=== PATIENT | male | born 1945 | race Caucasian/White ===

== ENCOUNTER → 2017-01-03 | Outpatient (CLI) | payer OTHER, MEDICARE ==
[~2017-01-03] MED LIST: ALBU1AER9 INH; AMPI500C9 PO; ASPI325T45 PO; ATOR-24 PO; CITA20TA4 PO; CLOP1TAB15 PO; CLR10 PO; CYCL10TA6 PO; FLUT45AE IN; GABA800T PO; HYDR-5688 PO; INSDGI SC; NTRGSL/4 UT; PANT40TA PO; TAMS0.4C38 PO
== END | disposition home or self-care (01) ==
LOC: C.LABSPEC 16:58
PROVIDERS: ATTEND Urology
DX: Z00.00 Encounter for general adult medical examination without abnormal findings (principal); E11.9 Type 2 diabetes mellitus without complications; N47.2 Paraphimosis; I51.9 Heart disease, unspecified; N20.1 Calculus of ureter; I63.9 Cerebral infarction, unspecified; N39.0 Urinary tract infection, site not specified; N40.1 Benign prostatic hyperplasia with lower urinary tract symptoms; R35.0 Frequency of micturition

== ENCOUNTER 2019-12-23 07:54 | Inpatient (IN) ==
--- NOTE | 2019-12-19 10:37 | Anesthesiology Consultation ---
Date of Service December 19, 2019 Assessment & Plan (1) Encounter for pre-operative examination: Chart Review Chart Review: Acceptable Risk for Surgery (pending PRP DOS ) and Patient NOT seen in Pre Admission Testing - At PAT appt 08/13/19, pt found to be in kidney failure. Referred to nephro- nephro d/c'ed Metformin and Cozaar and started Procardia. Repeated labs in 4 weeks (subsequently cleared by nephro- see below). Pt had all preop labs updated with exception to PRP. Will order AM of surgery. Due to patient's renal failure- will not order fluids at this time until GFR can be re-evaluated AM of surgery. - Check BSG AM DOS ---Per surgeon's office- Eliquis and Plavix were stopped 12/17/19. Did start bridging with Lovenox 12/18/19- 80mg BID x 5 days. Per nursing assessment 12/18/2019, patient resides in [facility] (he wears PPE). Pt denies any known contact with PUI/Covid positive patients. No current Covid related symptoms or history of Covid testing Cardio Clearance 07/21/19= Pt is "considered cleared from cardiac standpoint for the upcoming procedure." (Did have 3 ADY placed 01/24/19- discussed with Dr. Mendoza- pt approved for surgery at this time) Nephro note 09/19/19= "I feel that from a renal standpoint he is medically cleared for the planned surgery." Seen by PCP 06/27/19= " Benefits outweigh the risks. Pt is a moderate risk for moderate risk surgery but needs to have it done for quality of life measureshe is approved for proposed surgery." Diabetesborderline uncontrolled but stable. Hypertensionstable continue current meds. CKD stage IIIcontinue to monitor. OSAcontinue with CPAP. GERD stable. Chronic pain syndromeuncontrolled but stable seeing pain management. COPD stable, continue current meds. PVDstable continue current meds. CADstablerefer to cardio for surgical clearance. Per neuro note 07/01/19= Pt prescribed Apixaban 5mg BID to prevent recurrent stroke and discontinuation of that medication will increase their risk for stroke. If discontinuation is required for procedure , please restart as soon as safe post op. For anticoagulants that need to be held for several days pre op, please consider bridging with Loveonx. History Surgery Operation Date: 12/23/19 09:35 Proposed Procedures p Right Posterior Total Hip Arthroplasty - Ignacio Camacho DO Height/Weight Height: 5 ft 8 in Weight: 102.058 kg Allergies Allergy/AdvReac Type Severity Reaction Status Date / Time No Known Allergies Allergy Unverified 08/12/19 11:00 Medications Home Medications Medication Instructions Recorded Confirmed Last Taken albuterol sulfate [ProAir HFA] 2 puff INHALATION QID PRN 08/12/19 12/18/19 Unknown amlodipine [Norvasc] 10 mg PO QAM 08/12/19 12/18/19 Unknown apixaban [Eliquis] 5 mg PO BID 08/12/19 12/18/19 Unknown bupropion HCl [Wellbutrin SR] 100 mg PO BID 08/12/19 12/18/19 Unknown citalopram [Celexa] 20 mg PO QAM 08/12/19 12/18/19 Unknown clopidogrel [Plavix] 75 mg PO QAM 08/12/19 12/18/19 Unknown cyclobenzaprine 10 mg PO HS PRN 08/12/19 12/18/19 Unknown donepezil [Aricept] 5 mg PO HS 08/12/19 12/18/19 Unknown duloxetine 60 mg PO HS 08/12/19 12/18/19 Unknown ferrous sulfate 325 mg PO QAM 08/12/19 12/18/19 Unknown finasteride [Proscar] 5 mg PO QAM 08/12/19 12/18/19 Unknown fluticasone propion-salmeterol 2 puff INHALATION BID 08/12/19 12/18/19 Unknown [Advair HFA] folic acid 0.4 mg PO BID 08/12/19 12/18/19 Unknown furosemide [Lasix] 40 mg PO QAM 08/12/19 12/18/19 Unknown gabapentin 800 mg PO TID 08/12/19 12/18/19 Unknown hydrocodone-acetaminophen [Vicodin 1 tab PO TID PRN 08/12/19 12/18/19 Unknown HP] insulin glargine [Lantus U-100 40 unit SUBCUT BID 08/12/19 12/18/19 Unknown Insulin] isosorbide mononitrate 30 mg PO QAM 08/12/19 12/18/19 Unknown loratadine [Claritin] 10 mg PO QAM 08/12/19 12/18/19 Unknown metoprolol tartrate [Lopressor] 25 mg PO HS 08/12/19 12/18/19 Unknown nortriptyline 50 mg PO HS 08/12/19 12/18/19 Unknown pantoprazole [Protonix] 40 mg PO QAM 08/12/19 12/18/19 Unknown tamsulosin [Flomax] 0.4 mg PO QAM 08/12/19 12/18/19 Unknown zolpidem [Ambien] 10 mg PO HS PRN 08/12/19 12/18/19 Unknown zonisamide 25 mg PO BID 08/12/19 12/18/19 Unknown Past Medical History Medical History (Updated 12/19/19 @ 10:42 by Dara Swift PA-C) [place] (acute kidney injury) GFR noted to be 19 on pre-op labs 08/13 with Dx of only Stage III CKD. Notified PCP and nephro, who state this is NOT baseline. Patient seen by nephro on 08/18. Metformin and Cozaar d/c'd. Procardia initiated for HTN control. Anxiety Asthma Stable, daily albuterol. Avascular necrosis Of R hip BPH (benign prostatic hyperplasia) CAD (coronary artery disease) S/p stent to RCA 1997; stent 1998; 3 ADY to Cx 01/2019 Carotid artery stenosis 60% > follows Dr. Valera > [facility] Chronic back pain CKD (chronic kidney disease) stage 3 > SEES DR[place] MARINELLI IN [place] Depression Diabetes Diabetic neuropathy Gallstones pt unaware GERD (gastroesophageal reflux disease) Hx of sepsis 4 YRS AGO >UNSURE OF CAUSE > THINKS FROM URINARY CATHETER Hyperlipidemia Hypertension Kidney stone Memory loss On Aricept. Is cared for primarily by his friend, Cristina. Myocardial Infarction OVER 15 YEARS AGO Osteoarthritis Sleep apnea CPAP Stroke LAST EPISODE AUG 2018> NO RESIDUAL EFFECTS AT PRESENT HAD RIGHT ARM WEAKNESS AT FIRST> [facility] Past Surgical History Surgical History History of cardiac cath JANUARY 24, 2019 > [facility] > ADY X 3 TO LCx History of colonoscopy History of esophagogastroduodenoscopy (EGD) History of heart artery stent LAST OCCURANCE >JANUARY 24, 2019 > [facility] > 6 TOTAL History of nephrostomy REMOVED 4 YRS AGO Social History Smoking Status: Never smoker Do You Dip or Chew Tobacco: No Hx Alcohol Use: No Alcohol type: hard liquor alcohol intake frequency: holidays/special occasions only Hx Substance Use: No substance use type: does not use Testing Laboratory Results Laboratory Tests 08/13/19 12/18/19 12/18/19 13:16 12:42 12:42 WBC 6.06 Hgb 12.5 L Hct 37.7 L Plt Count 188 PT 10.9 INR 1.0 APTT 29.0 Hemoglobin A1c 9.4 H Electrocardiogram Date: 08/13/19 Findings: + NSR @ (83bpm with 1st degree AV block) Chest X-Ray Date: 08/13/19 Findings: + NAD Stress Test Date: 12/20/18 Type: nuclear Resting EF: 46% Moderate inferior lateral wall myocardial ischemia. LV wall motionhypokinetic global wall segment. Cardiac Catheterization Date: 01/24/19 Significant mid left circumflex stenosis. Moderate in-stent restenosis of right coronary artery. Normal left ventricular systolic function. Recommendations: Medical therapy and aggressive risk factor modification. Rotational atherectomy and angioplasty and stenting of mid left circumflex with 3 drug-eluting stents.
--- NOTE | 2019-12-22 19:49 | History & Physical Report ---
Date of Service December 23, 2019 Assessment & Plan (1) Degenerative joint disease of right hip: I have indicated the patient for right total hip replacement. The risks, benefits and complications of surgery were explained to the patient which include but not limited to infection, acute blood loss, DVT/PE, injury to nerves, vessels, bone, soft tissue, arthrofibrosis, chronic pain, failure of the prosthesis, hip dislocation, leg length discrepancy, need for additional surgery, cardiac and pulmonary events and . The patient wished to proceed with surgery and informed consent was obtained at this time. We will plan for restarting patient's home blood thinner, eliquis post-operatively for DVT prophylaxis. Upon discharge the patient will be discharged home with home health services. Appropriate clearances by PCP, bell nephcristina were obtained. Patient is asymptomatic for UTI. History of Present Illness Chief Complaint: Right hip DJD/AVN Primary Care Provider: Devin Calderon DO The patient is a 74 year old male who presents with complaints of severe right hip pain and AVN/DJD. The patient has failed outpatient conservative treatments to this point which included NSAIDs and a home exercise, walking program. The patient's pain and limited function have progressed to the point where they severely hinder their activities of daily living and they no longer tolerate exercise programs. They are requesting to proceed with total hip replacement surgery. Allergies Allergy/AdvReac Type Severity Reaction Status Date / Time No Known Allergies Allergy Unverified 12/23/19 09:02 Home Medications Home Medications Medication Instructions Recorded Confirmed Type albuterol sulfate [ProAir HFA] 2 puff INHALATION QID PRN 08/12/19 12/23/19 History amlodipine [Norvasc] 10 mg PO QAM 08/12/19 12/23/19 History apixaban [Eliquis] 5 mg PO BID 08/12/19 12/23/19 History bupropion HCl [Wellbutrin SR] 100 mg PO BID 08/12/19 12/23/19 History citalopram [Celexa] 20 mg PO QAM 08/12/19 12/23/19 History clopidogrel [Plavix] 75 mg PO QAM 08/12/19 12/23/19 History cyclobenzaprine 10 mg PO HS PRN 08/12/19 12/23/19 History donepezil [Aricept] 5 mg PO HS 08/12/19 12/23/19 History duloxetine [Cymbalta] 60 mg PO HS 08/12/19 12/23/19 History ferrous sulfate 325 mg PO BID 08/12/19 12/23/19 History finasteride [Proscar] 5 mg PO QAM 08/12/19 12/23/19 History fluticasone propion-salmeterol 2 puff INHALATION BID 08/12/19 12/23/19 History [Advair HFA] folic acid 0.4 mg PO BID 08/12/19 12/23/19 History furosemide [Lasix] 40 mg PO QAM 08/12/19 12/23/19 History gabapentin 300 mg PO TID 08/12/19 12/23/19 History hydrocodone-acetaminophen [Vicodin 1 tab PO TID PRN 08/12/19 12/23/19 History HP] insulin glargine [Lantus U-100 40 unit SUBCUT BID 08/12/19 12/23/19 History Insulin] isosorbide mononitrate 30 mg PO QAM 08/12/19 12/23/19 History loratadine [Claritin] 10 mg PO QAM 08/12/19 12/23/19 History metoprolol tartrate [Lopressor] 25 mg PO HS 08/12/19 12/23/19 History nortriptyline 50 mg PO HS 08/12/19 12/23/19 History pantoprazole [Protonix] 40 mg PO QAM 08/12/19 12/23/19 History tamsulosin [Flomax] 0.4 mg PO QAM 08/12/19 12/23/19 History zolpidem [Ambien] 10 mg PO HS PRN 08/12/19 12/23/19 History zonisamide [Zonegran] 25 mg PO BID 08/12/19 12/23/19 History atorvastatin [Lipitor] 40 mg PO DAILY 12/23/19 12/23/19 History enoxaparin [Lovenox] 80 mg SUBCUT Q12H 12/23/19 12/23/19 History Past Med/Surg History Medical History [place] (acute kidney injury) GFR noted to be 19 on pre-op labs 08/13 with Dx of only Stage III CKD. Notified PCP and nephro, who state this is NOT baseline. Patient seen by nephro on 08/18. Metformin and Cozaar d/c'd. Procardia initiated for HTN control. Anxiety Asthma Stable, daily albuterol. Avascular necrosis Of R hip BPH (benign prostatic hyperplasia) CAD (coronary artery disease) S/p stent to RCA 1997; stent 1998; 3 ADY to Cx 01/2019 Carotid artery stenosis 60% > follows Dr. Valera > counts include [facility] beds [facility] Chronic back pain CKD (chronic kidney disease) stage 3 > SEES DR. MARINELLI IN [facility] Diabetes Diabetic neuropathy Gallstones pt unaware GERD (gastroesophageal reflux disease) Hx of sepsis 4 YRS AGO >UNSURE OF CAUSE > THINKS FROM URINARY CATHETER Hyperlipidemia Hypertension Kidney stone Memory loss On Aricept. Is cared for primarily by his friend, Cristina. Myocardial Infarction OVER 15 YEARS AGO Osteoarthritis Sleep apnea CPAP Stroke LAST EPISODE AUG 2018> NO RESIDUAL EFFECTS AT PRESENT HAD RIGHT ARM WEAKNESS AT FIRST> [facility] Surgical History History of cardiac cath JANUARY 24, 2019 > [facility] > ADY X 3 TO LCx History of colonoscopy History of esophagogastroduodenoscopy (EGD) History of heart artery stent LAST OCCURANCE >JANUARY 24, 2019 > [facility] > 6 TOTAL History of nephrostomy REMOVED 4 YRS AGO Social History Preferred Language: Northern Irish Communication Ability: Impaired Wire Taper Required: No Beliefs That Will Affect Care: None Current Living Situation: Family Other Information That Helps Us Care for You: No Feels Safe at Home: Yes Safety Concerns: Feels Safe At This Time Smoking Status: Never smoker Do You Dip or Chew Tobacco: No ; Second Hand Exposure: No ; Tobacco Cessation Education Requested by Patient: No Hx Alcohol Use: No Hx Substance Use: No Review of Systems Review of Systems: All systems reviewed & are unremarkable except as noted in HPI & below Constitutional: as per Subjective / HPI Physical Exam Physical Exam: RLE NVSI +EHL/FHL/TA/GS SILT grossly, +2 DP pulse, compartments soft NT, painful ROM of the hip, antalgic gait. Constitutional: WD/WN, vitals as above Eyes: PERRL, conjunctivae normal, anicteric sclerae ENMT: external ear and nose normal, oropharynx normal Neck: trachea midline, no thyromegaly Respiratory: normal respiratory effort, lungs clear to auscultation Cardiovascular: RRR, no murmur, no edema Gastrointestinal (Abdomen): normal bowel sounds, soft, nontender, no hepatosplenomegaly Musculoskeletal: no cyanosis or clubbing, extremities motor strength 5/5 Skin: no rashes, warm and dry Neurologic: patellar DTR's 2+ bilat, sensation intact Psychiatric: A+Ox3, euthymic affect Lymphatic: no cervical or axillary lymphadenopathy Results & Data Results & Data ([facility]) Diagnostic Findings Multiple views of the hip demonstrates DJD with AVN, cortical irregularity, with cortical collapse. +osteophytes, +sclerosis. MRI right hip demonstrated severe DJD, AVN 1.7x7cm with cortical collapse.
[~2019-12-23 07:54] MED LIST changes: +ACETAMINOPHEN 500 MG TAB PO SCH; -ALBU1AER9 INH; -AMPI500C9 PO; -ASPI325T45 PO; -ATOR-24 PO; +BACITRACIN INJ 50,000 UNIT VIAL ONE; +BUPIVACAINE 0.5 % 5 MG/1 ML PF 10ML VIAL ONE; +CEFAZOLIN 2000MG 2,000 MG/15 ML SYR IV SCH; -CITA20TA4 PO; -CLOP1TAB15 PO; -CLR10 PO; -CYCL10TA6 PO; +CeleBREX 200 MG CAP PO SCH; +FAMOTIDINE 20 MG TAB PO SCH; -FLUT45AE IN; -GABA800T PO; +GABAPENTIN 300 MG CAP PO SCH; -HYDR-5688 PO; -INSDGI SC; -NTRGSL/4 UT; +ORTHO JOINT ANESTHETIC ONE; -PANT40TA PO; +ROPIVACAINE 0.5% HCL/PF 150 MG, BUPIVACAINE 0.5% MPF 30 ML, EPINEPHrine 30MG/30ML (OR U... INSTIL SCH; -TAMS0.4C38 PO; +TRANEXAMIC ACID 1,000 MG **IV Intra-op IV SCH; +TRANEXAMIC ACID 1,000 MG **IV Pre-op IV SCH; +dexAMETHasone 4 MG TAB PO SCH
[2019-12-23 09:02] LABS: BUN Creatinine Ratio 20.6 (10-20); Calcium 9.2 mg/dl (8.5-10.1); Creatinine Clr Calc Pharmacy 40.9 ml/min; Est GFR (African American) 40.2; Est GFR (Non-African American) 34.7; Potassium 3.6 mmol/L (3.5-5.1)
[2019-12-23] MEDS ORDERED: PROPOFOL IV EMULSION 10 MG/ML 20 ML VIAL IV ONE (09:16)
[2019-12-23] MEDS ORDERED: MIDAZOLAM HCL 1 MG/ML 2ML VIAL ONE (09:16)
[2019-12-23] MEDS ORDERED: fentaNYL citrate 100 MCG/2 ML VIAL ONE ×3 (09:17→12:31)
[2019-12-23] MEDS ORDERED: DEXTROSE 50% 50 ML SYRINGE IV ONE (09:18)
[2019-12-23] MEDS ORDERED: LACTATED RINGER'S 1,000 ML IV SCH (09:45)
--- NOTE | 2019-12-23 09:51 | History & Physical Bridge Note ---
Date of Service December 23, 2019 History & Physical Bridge Note I have examined the patient, reviewed the History & Physical and in the interval since the performance of the History & Physical I have noted the following changes of clinical significance: no changes noted
[2019-12-23] MEDS ORDERED: METOCLOPRAMIDE HCL 10 MG TABLET ONE (09:52)
[2019-12-23] MEDS ORDERED: ATROPINE SULFATE 0.1 MG/ML 10ML SYR IV PRN (10:52)
[2019-12-23] MEDS ORDERED: ePHEDrine sulfate 50 MG/ML AMP IV PRN (10:52)
[2019-12-23] MEDS ORDERED: ONDANSETRON INJ 2 MG/ML 2 ML VIAL IV PRN ×2 (10:52→14:10)
--- NOTE | 2019-12-23 11:52 | Post Operative Brief Note ---
Immediate Post Op Note v1 Date of Surgery December 23, 2019 Pre & Post Diagnosis Operation Date: 12/23/19 09:35 Pre-Op Diagnosis: Primary Osteoarthritis Right Hip Post-Op Diagnosis: Primary Osteoarthritis Right Hip I identified the patient and participated in the time-out.: Yes Procedure Operation Date: 12/23/19 09:35 Actual Procedures p Right Posterior Total Hip Arthroplasty(Right) - Ignacio Camacho DO Surgeon Ignacio Camacho DO Executive Vice President And Chief Operating Officer Ludwin Willingham Estimated Blood Loss 175 Findings Consistent with Post-Op Diagnosis Fluids 1200 cc LR Specimens femoral head Anesthesia Type General Complications none Disposition Disposition: Recovery Room Overlapping Procedure I was present for: the critical portions of procedure. I was immediately available: during the entire case. Back up surgeon: was not required during procedure.
--- NOTE | 2019-12-23 11:55 | Operative Report ---
Post Operative Report Pre & Post Diagnosis Operation Date: 12/23/19 09:35 Pre-Op Diagnosis: Primary Osteoarthritis Right Hip Post-Op Diagnosis: Primary Osteoarthritis Right Hip I identified the patient and participated in the time-out.: Yes Procedure Operation Date: 12/23/19 09:35 Actual Procedures p Right Posterior Total Hip Arthroplasty(Right) - Ignacio Camacho DO Surgeon Ignacio Camacho, Offal Trimmer Ludwin Willingham Estimated Blood Loss 175 Findings Consistent with Post-Op Diagnosis Fluids 1200 cc LR Specimens femoral head Anesthesia Type General Complications none Disposition Disposition: Recovery Room Indications The patient is a 74-year-old male who presents with severe progressive right hip DJD who has failed outpatient conservative treatments. I indicated the patient for a total hip replacement and the risks and benefits were explained in detail which included but not limited to infection, bleeding, blood clot, damage to surrounding bone, nerves, vessels, soft tissue, hip dislocation, failure of the prosthesis, leg length discrepancy, need for additional surgery and . The patient agreed to proceed with replacement of the hip and informed consent was obtained. Appropriate clearances were obtained. Description of Procedure COMPONENTS USED: Felicity [employer] hip system: Acetabulum size 54 G7, femur size 13.5 standard ML taper offset, femoral head 36-3.5, liner 5430, acetabular screw 35 mm x 1. Following induction of adequate spinal anesthesia, the patient was transferred to the OR table and placed in lateral decubitus position with left hip down. The right hip was prepped and draped in the typical sterile fashion. A timeout was performed, patient identified and site anna confirmed. Appropriate antibiotics were given. A standard posterolateral/Josue-Langenbeck incision was made. Subcutaneous tissue was sharply dissected. Electrocautery was utilized for hemostasis. The fascia was incised throughout the length of the wound and retracted with the Charnley retractor. The bursa was taken down and the short external rotators were identified. The piriformis was tagged with #1 Vicryl. The short external rotators and capsule were divided from the posterior aspect of the femur using electrocautery. The posterior capsule was tagged with #1 Vicryl. Both external rotators and posterior capsule were swept posterior and protected, along with protecting the sciatic nerve. The hip was dislocated by flexion and internally rotation in a controlled manner and exposure of the femoral neck was gained with an old-style Hohmann and a blunt cobra retractor. A femoral cutting guide was utilized for making the appropriate level femoral neck cut with reciprocating saw. The femoral head was removed, measured and reserved on the back table. Next, attention was turned to the acetabulum. A posterior and anterior offset retractor was placed to gain adequate exposure. Acetabular labrum as well as posterior capsule elements were removed using electrocautery and forceps. Fovea centralis was cleared of all soft tissue. Sequential reaming was performed starting at 48 mm and carried up to a 53 mm and decision was made to proceed with impaction of a 54 mm G7 osteo-ti metal cup. This was impacted and held using a single 35 mm bone screw. The trial acetabular liner was placed at this time. Next, attention was turned to the proximal femur where a Bovie and pickup was used to further clear short external rotators from their insertion on the femur. Box osteotome and canal finder was used to gain access to the femoral canal and the lateral reamer on power was used to further open the proximal lateral canal. Sequentially rasping was carried up to a 13.5 which gave good fit and fill of the proximal femur. A trial reduction was carried out with a standard offset femoral neck component a 36-3.5 mm femoral head. The trial reduction was stable in all degrees of ro tation with no [id number] impingement. The hip was dislocated, trial components were removed and access to the acetabulum was re-established. The trial liner was removed and the cup was irrigated to ensure all debris was removed. The final acetabular liner was inserted and properly seated in the cup. Access to the femur was once more gained and the size 13.5 femoral stem with standard offset was impacted into position. The hip was once more assessed with the 36-3.5 mm femoral head. Stability was accessed and found to be excellent with equal leg lengths. The hip was dislocated for the last time and the final 36-3.5 ceramic femoral head was impacted in place and the hip was reduced. Range of motion was checked once again and found to be stable. A Betadine soak was performed. After 3 minutes, the hip was once more irrigated with copious sterile saline solution with bacitracin. The tawnya-incisional soft tissue was injected utilizing [facility] [place] ortho mix which includes a combination of Ropivicaine 0.5% 150mg, Bupivicaine 0.5%/Epinephrine 1:200,000 30ml, Toradol 30mg, Dexamethasone 4mg, Ketamine 10mg, Clonidine 100mcg and NSS 30ml Orthomix solution. The piriformis, external rotators and capsule were repaired to the greater trochanter through bone tunnels using #5 FiberWire. The fascia was closed using #1 Vicryl, subcutaneous tissue was closed using 2-0 Vicryl, and skin was closed with sowmya. A clean dry sterile dressing was applied which included Elise incisional VAC. The patient tolerated the procedure well and was transported to PACU in stable condition. Due to the complex nature of the procedure, the entire surgery was performed with the operational assistance of Ludwin Willingham PA-C. The kindergarten assistant, under direct supervision, was involved in the actual performance of all aspects of the surgical procedure including patient positioning, hemostasis, tissue retraction, instrument management and wound closure. I attest to the content of the Intraoperative Record and any orders documented therein. Any exceptions are noted below.
[2019-12-23] MEDS ORDERED: LIDOCAINE HCL 2% 2 ML VIAL/AMP(20MG/ML) INFIL ONE (12:04)
[2019-12-23] MEDS ORDERED: ONDANSETRON INJ 2 MG/ML 2 ML VIAL ONE (12:04)
[2019-12-23] MEDS ORDERED: NEOSTIGMINE METHYLSULFATE 5 MG/5 ML SYR ONE (12:04)
[2019-12-23] MEDS ORDERED: ROCURONIUM BROMIDE 10 MG/ML 5 ML VIAL ONE (12:04)
[2019-12-23] MEDS ORDERED: GLYCOPYRROLATE 0.2 MG/ML VIAL ONE (12:04)
[2019-12-23] MEDS: fentaNYL citrate 100 MCG/2 ML VIAL IV PRN ×4 (12:52→13:07)
--- NOTE | 2019-12-23 13:16 | XRay Report ---
XR hip 1V RT w pelvis CLINICAL HISTORY: IN PACU - A/P PELVIS and LATERAL HIP COMPARISON: None. DISCUSSION: Anatomic alignment posttotal right hip arthroplasty. Could contact between prosthetic and underlying bone. No evidence for acetabular protrusion. Expected postoperative soft tissue change. IMPRESSION: Anatomic alignment posttotal right hip arthroplasty. ACT 112: Negative or not required by law. The above report was generated using voice recognition software. It may contain grammatical, syntax or spelling errors. Electronically signed by: Eagle Leroy M.D. 12/23/2019 1:14 PM
--- NOTE | 2019-12-23 14:06 | Anesthesiology Progress Note ---
Date of Service December 23, 2019 Anesthesia Post Procedure Vital Signs Vital Signs: Temp Pulse Pulse Resp BP Pulse Ox 12/23/19 13:40 36.4 C L 69 14 103/70 94 12/23/19 13:30 36.4 C L 71 14 103/61 95 12/23/19 13:20 36.4 C L 69 12 115/62 100 12/23/19 13:10 73 10 L 118/64 99 12/23/19 13:00 70 12 111/70 100 12/23/19 12:50 36.0 C L 70 12 135/72 100 12/23/19 12:42 36.0 C L 68 16 131/71 98 12/23/19 09:33 36.5 C 66 18 159/69 H 96 Pain Intensity Right Hip: Pain Intensity: 1 Right Knee: Pain Intensity: 6 Transfer of Care Handoff Completed per policy Notes Mental Status: alert / awake / arousable Patient Amnestic to Procedure: Yes Nausea / Vomiting: adequately controlled Pain: adequately controlled Airway Patency, RR, SpO2: stable & adequate BP & HR: stable & adequate Hydration State: stable & adequate Anesthetic Complications: no major complications apparent
[2019-12-23] MEDS ORDERED: METOCLOPRAMIDE HCL INJ 5 MG/ML 2 ML VIAL IV PRN (14:10)
[2019-12-23] MEDS ORDERED: bisacodyL 10 MG SUPP PR PRN (14:10)
[2019-12-23] MEDS ORDERED: MAGNESIUM HYDROXIDE SUSP 30 ML UDC PO PRN (14:10)
[2019-12-23] MEDS ORDERED: NALOXONE HCL 0.4 MG/1 ML VIAL/CARP IV PRN (14:10)
[2019-12-23] MEDS ORDERED: HYDROmorphone INJ 0.5 MG/0.5 ML SYR IV PRN (14:10)
[2019-12-23] MEDS ORDERED: PHARMACY GLYCEMIC MGMT CONSULT PRN (14:24)
[2019-12-23] MEDS ORDERED: ALBUTEROL HFA 8 GM INHALER INH PRN (14:29)
[2019-12-23] MEDS ORDERED: GLUCOSE 40% GEL 15 GM TUBE PO PRN (14:30)
[2019-12-23] MEDS ORDERED: DEXTROSE 50% 50 ML SYRINGE IV PRN (14:30)
[2019-12-23] MEDS ORDERED: GLUCAGON FOR INJ 1 MG VIAL IM PRN (14:30)
[2019-12-23] MEDS ORDERED: GLUCOSE 10 TABS/TUBE PO PRN (14:30)
[2019-12-23] MEDS ORDERED: CYCLOBENZAPRINE HCL 10 MG TAB PO PRN (14:38)
[2019-12-23] MEDS: SODIUM CHLORIDE 0.9% 1000ML 1,000 ML IV SCH (14:48)
[2019-12-23] MEDS ORDERED: GABAPENTIN 800 MG TAB PO SCH (15:00)
--- NOTE | 2019-12-23 15:13 | Pharmacy Report ---
Glycemic Control Consultation - Date of Service December 23, 2019 - Scope Scope: Glycemic Pharmacist consulted for glycemic control and to write orders per [facility] inpatient glycemic control protocol. - Objective Weight: 102.6 kg Accuchecks BSG (last 24hrs): 12/23/19 12/23/19 12/23/19 08:19 08:26 08:30 Glucose 56 L POC Glucose 65 L* 65 L* 12/23/19 12/23/19 12/23/19 09:52 12:44 14:50 Glucose POC Glucose 82 115 H 168 H Laboratory Data (last 24hrs): 12/23/19 08:19 Potassium 3.6 Carbon Dioxide 28 Anion Gap 6.0 Creatinine 1.89 H Est Cr Clr Drug Dosing 40.9 - Recent Pertinent Medications Outpatient Anti-diabetic Regimen: * Lantus 40 units BID * A1c = 9.4 % (08/13/19) * Will reorder HbA1c for tomorrow Risk Factors for Insulin Resistance: * Steroids: Dexamethasone 8 mg PO x 1 + intraarticular ortho mix * Recent Surgery: POD #0 s/p right VILMA * Diet: T2DM - Assessment & Plan Assessment & Plan: ASSESSMENT: * NB is a 74 year old male POD #0 s/p right total hip arthroplasty * Received dexamethasone 8 mg PO x 1 + intraarticular ortho mix intraoperatively * BSGs ranging 56-168 mg/dL so far today * Home regimen consists of Lantus 40 units BID - last dose was evening of 12/21 PLAN FOR INPATIENT GLYCEMIC CONTROL: * Basal insulin * Lantus 20 units SC x 1 now * Lantus scale this evening to give between 20-40 units based on BSG (see EHR for details) * Lantus 20 units SQ BID thereafter * Bolus insulin * NovoLog per scale ACHS or Q6hrs while NPO * Goal Range: Low 120 mg/dL - High 150 mg/dL * Correction Factor: 20 mg/dL/unit * Nutritional / Prandial insulin per carb ratio of 1 unit per 7 grams CHO consumed * Will add one overnight check at 0200 with same parameters * Please note that the plan above was derived based on current level of insulin resistance and hospital stress. These recommendations are appropriate for inpatient admission only. Plan of care upon discharge will need to be reassessed to avoid potential outpatient hypo/hyperglycemia. Thank you.
[2019-12-23] MEDS ORDERED: INSULIN GLARGINE SOLOSTAR 100 UNITS/ML 3 ML PEN SC ONE ×2 (15:15→21:00)
[2019-12-23] MEDS: ACETAMINOPHEN 500 MG TAB PO SCH ×2 (15:59→22:19)
[2019-12-23] MEDS: INSULIN ASPART 100 UNITS/ML 3 ML PEN SC SCH ×3 (16:00→21:40)
--- NOTE | 2019-12-23 16:51 | Orthopedic Progress Note ---
Date of Service December 23, 2019 Assessment & Plan (1) Degenerative joint disease of right hip: s/p right VILMA -ancef x 24 -DVT ppx: SCDs, TEDs, Eliquis, Plavix -WBAT RLE -PT/OT -PO XR demonstrates well aligned well fixed prothesis without fracture/dislocation -am labs -DC planning Admission and Anticipated Discharge Date Admission Date: December 23, 2019 Subjective Post Operative Progress Note Patient seen sitting up in bed, comfortable, denies complaints, pain well controlled, no acute issues. Review of Systems Review of Systems: All systems reviewed & are unremarkable except as noted in HPI & below Constitutional: as per Subjective / HPI Physical Exam Physical Exam: RLE NVSI +EHL/FHL/TA/GS SILT grossly, +2 DP pulse, compartments soft NT, dressing cdi. Constitutional: WD/WN, vitals as above Results & Data ([facility]) Vital Signs (Past 12 Hours) Vital Signs Temp Pulse Pulse Pulse Resp BP Pulse Ox 12/23/19 15:57 36.4 C L 70 18 98/60 L 95 12/23/19 14:54 36.4 C L 73 18 99/67 L 98 12/23/19 14:25 36.4 C L 75 18 105/65 96 12/23/19 13:55 36.5 C 72 16 106/66 92 12/23/19 13:40 36.4 C L 69 14 103/70 94 12/23/19 13:30 36.4 C L 71 14 103/61 95 12/23/19 13:20 36.4 C L 69 12 115/62 100 12/23/19 13:10 73 10 L 118/64 99 12/23/19 13:00 70 12 111/70 100 12/23/19 12:50 36.0 C L 70 12 135/72 100 12/23/19 12:42 36.0 C L 68 16 131/71 98 12/23/19 09:33 36.5 C 66 18 159/69 H 96
[2019-12-23] MEDS: GABAPENTIN 300 MG CAP PO SCH ×2 (17:10→22:36)
[2019-12-23] MEDS: CEFAZOLIN 2000MG 2,000 MG/15 ML SYR IV SCH (17:27)
[2019-12-23] MEDS ORDERED: FLUTICASONE/VILANTEROL 100/25MCG 14 PUFFS/INHALER INH SCH (21:00)
[2019-12-23] MEDS ORDERED: INSULIN GLARGINE SOLOSTAR 100 UNITS/ML 3 ML PEN SC SCH (21:00)
[2019-12-23] MEDS: FERROUS SULFATE 325 MG TAB PO SCH (21:36)
[2019-12-23] MEDS: NORTRIPTYLINE HCL 25 MG CAP PO SCH (21:36)
[2019-12-23] MEDS: FOLIC ACID 400 MCG TAB PO SCH (21:36)
[2019-12-23] MEDS: DOCUSATE SODIUM 100 MG CAP PO SCH (21:36)
[2019-12-23] MEDS: DONEPEZIL HCL 5 MG TAB PO SCH (21:36)
[2019-12-23] MEDS: DULOXETINE HCL 60 MG CAP PO SCH (21:36)
[2019-12-23] MEDS: BuPROPion SR 100 MG TABCR PO SCH (21:36)
[2019-12-23] MEDS: METOPROLOL TARTRATE 25 MG TAB PO SCH (21:36)
[2019-12-23] MEDS: SENNA 8.6 MG TAB PO SCH (21:36)
[2019-12-23] MEDS: OXYCODONE HCL IR 5 MG TAB (IMMEDIATE RELEASE) PO PRN (22:20)
[2019-12-24] MEDS: SODIUM CHLORIDE 0.9% 1000ML 1,000 ML IV SCH (00:01)
[2019-12-24] MEDS: CEFAZOLIN 2000MG 2,000 MG/15 ML SYR IV SCH (01:58)
[2019-12-24] MEDS ORDERED: INSULIN ASPART 100 UNITS/ML 3 ML PEN SC SCH (02:00)
[2019-12-24] MEDS: ACETAMINOPHEN 500 MG TAB PO SCH ×3 (06:15→21:13)
[2019-12-24 06:53] LABS: Basophils # (auto) 0.01 K/uL (0-0.2); Basophils % (auto) 0.1 %; Eosinophils # (auto) 0.01 K/uL (0-0.5); Eosinophils % (auto) 0.1 %; Hematocrit (blood only) 27.3 % (42-52); Hemoglobin 9.1 g/dL (14.0-18.0); Immature Granulocytes # (auto) 0.09 K/uL (0.00-0.02); Immature Granulocytes % (auto) 0.7 %; Lymphocytes # (auto) 0.89 K/uL (1.2-3.4); Lymphocytes % (auto) 7.3 %; Mean Corpuscular Hemoglobin 31.2 pg (25-34); Mean Corpuscular Hgb Conc 33.3 g/dL (32-36); Mean Corpuscular Volume 93.5 fL (80-100); Mean Platelet Volume 9.7 fL (7.4-10.4); Monocytes # (auto) 1.15 K/uL (0.11-0.59); Monocytes % (auto) 9.4 %; Neutrophils # (auto) 10.09 K/uL (1.4-6.5); Neutrophils % (auto) 82.4 %; Platelet Count 186 K/uL (130-400); RDW Coefficient of Variation 14.2 % (11.5-14.5); RDW Standard Deviation 48.2 fL (36.4-46.3); Red Blood Count 2.92 M/uL (4.7-6.1); White Blood Count 12.24 K/uL (4.8-10.8)
[2019-12-24 07:38] LABS: BUN Creatinine Ratio 18.7 (10-20); Calcium 7.7 mg/dl (8.5-10.1); Creatinine Clr Calc Pharmacy 29.5 ml/min; Est GFR (Non-African American) 23.3; Potassium 5.2 mmol/L (3.5-5.1)
[2019-12-24 07:40] LABS: Estimated Average Glucose 212 mg/dl
[2019-12-24] MEDS: CARBOHYDRATES FOR HYPOGLYCEMIA PO PRN ×3 (07:46→08:43)
[2019-12-24] MEDS: FLUTICASONE/VILANTEROL 100/25MCG 14 PUFFS/INHALER INH SCH (08:10)
[2019-12-24] MEDS: FERROUS SULFATE 325 MG TAB PO SCH ×2 (08:12→21:15)
[2019-12-24] MEDS: FOLIC ACID 400 MCG TAB PO SCH ×2 (08:12→21:13)
[2019-12-24] MEDS: ATORVASTATIN 40 MG TAB PO SCH (08:12)
[2019-12-24] MEDS: AMLODIPINE BESYLATE 5 MG TAB PO SCH (08:12)
[2019-12-24] MEDS: BuPROPion SR 100 MG TABCR PO SCH ×2 (08:12→21:23)
[2019-12-24] MEDS: APIXABAN 5 MG TABLET PO SCH ×2 (08:12→21:15)
[2019-12-24] MEDS: PANTOprazole 40 MG TAB PO SCH (08:12)
[2019-12-24] MEDS: GABAPENTIN 300 MG CAP PO SCH ×3 (08:12→21:15)
[2019-12-24] MEDS: DOCUSATE SODIUM 100 MG CAP PO SCH ×2 (08:12→21:11)
[2019-12-24] MEDS: FINASTERIDE 5 MG TAB PO SCH (08:13)
[2019-12-24] MEDS: CLOPIDOGREL BISULFATE 75 MG TAB PO SCH (08:13)
[2019-12-24] MEDS: FUROSEMIDE 40 MG TAB PO SCH (08:13)
[2019-12-24] MEDS: ISOSORBIDE MONO EXTENDED REL 30 MG TABCR PO SCH (08:13)
[2019-12-24] MEDS: CITALOPRAM 20 MG TAB PO SCH (08:13)
[2019-12-24] MEDS: MULTIVITAMIN TAB PO SCH (08:13)
[2019-12-24] MEDS: TAMSULOSIN HCL 0.4 MG CAP PO SCH (08:13)
--- NOTE | 2019-12-24 08:22 | Orthopedic Progress Note ---
Date of Service December 24, 2019 Assessment & Plan (1) Degenerative joint disease of right hip: s/p right VILMA POD#1 -ancef x 24 -DVT ppx: SCDs, TEDs, Eliquis, Plavix -WBAT RLE -PT/OT -PO XR demonstrates well aligned well fixed prothesis without fracture/dislocation -am labs - hgb 9.1 -DC planning Admission and Anticipated Discharge Date Admission Date: December 23, 2019 Subjective Post Operative Progress Note Patient seen sitting up in bed, comfortable, denies complaints, pain well controlled, no acute issues. Denies F/C/N/V/SOB/CP. Review of Systems Review of Systems: All systems reviewed & are unremarkable except as noted in HPI & below Constitutional: as per Subjective / HPI Physical Exam Physical Exam: RLE NVSI +EHL/FHL/TA/GS SILT grossly, +2 DP pulse, compartments soft NT, dressing cdi. Constitutional: WD/WN, vitals as above Results & Data ([facility]) Vital Signs (Past 12 Hours) Vital Signs Temp Pulse Resp BP Pulse Ox 12/24/19 06:58 36.5 C 84 18 125/75 93 12/24/19 04:05 36.7 C 71 16 109/63 95 12/24/19 00:00 36.8 C 77 16 136/72 93 12/23/19 21:34 83 116/69 12/23/19 20:31 36.8 C 81 18 108/70 90 Laboratory Results 12/24/19 12/24/19 12/24/19 Range/Units 08:04 06:22 06:22 WBC (4.8-10.8) K/uL RBC (4.7-6.1) M/uL Hgb (14.0-18.0) g/dL Hct (42-52) % MCV (80-100) fL MCH (25-34) pg MCHC (32-36) g/dL RDW Std Deviation (36.4-46.3) fL RDW Coeff of Josie (11.5-14.5) % Plt Count (130-400) K/uL MPV (7.4-10.4) fL Immature Gran % (Auto) % Neut % (Auto) % Lymph % (Auto) % Dane % (Auto) % Eos % (Auto) % Baso % (Auto) % Immature Gran # (Auto) (0.00-0.02) K/uL Neut # (Auto) (1.4-6.5) K/uL Lymph # (Auto) (1.2-3.4) K/uL Dane # (Auto) (0.11-0.59) K/uL Eos # (Auto) (0-0.5) K/uL Baso # (Auto) (0-0.2) K/uL Sodium (136-145) mmol/L Potassium (3.5-5.1) mmol/L Chloride (98-107) mmol/L Carbon Dioxide (21-32) mmol/L Anion Gap (3-11) BUN (7-18) mg/dl Creatinine (0.6-1.4) mg/dl Est Cr Clr Drug Dosing ml/min Est GFR ( Amer) Est GFR (Non-Af Amer) BUN/Creatinine Ratio (10-20) Glucose (70-99) mg/dl POC Glucose 55 L* (70-99) mg/dl Estimat Average Glucose 212 mg/dl Hemoglobin A1c 9.0 H (4.5-5.6) % Calcium (8.5-10.1) mg/dl Hepatitis C Ab Screen Pending Blood Type Antibody Screen 12/24/19 12/24/19 12/24/19 Range/Units 06:22 06:22 01:57 WBC 12.24 H (4.8-10.8) K/uL RBC 2.92 L (4.7-6.1) M/uL Hgb 9.1 L (14.0-18.0) g/dL Hct 27.3 L (42-52) % MCV 93.5 (80-100) fL MCH 31.2 (25-34) pg MCHC 33.3 (32-36) g/dL RDW Std Deviation 48.2 H (36.4-46.3) fL RDW Coeff of Josie 14.2 (11.5-14.5) % Plt Count 186 (130-400) K/uL MPV 9.7 (7.4-10.4) fL Immature Gran % (Auto) 0.7 % Neut % (Auto) 82.4 % Lymph % (Auto) 7.3 % Dane % (Auto) 9.4 % Eos % (Auto) 0.1 % Baso % (Auto) 0.1 % Immature Gran # (Auto) 0.09 H (0.00-0.02) K/uL Neut # (Auto) 10.09 H (1.4-6.5) K/uL Lymph # (Auto) 0.89 L (1.2-3.4) K/uL Dane # (Auto) 1.15 H (0.11-0.59) K/uL Eos # (Auto) 0.01 (0-0.5) K/uL Baso # (Auto) 0.01 (0-0.2) K/uL Sodium 137 (136-145) mmol/L Potassium 5.2 H D (3.5-5.1) mmol/L Chloride 106 (98-107) mmol/L Carbon Dioxide 24 (21-32) mmol/L Anion Gap 7.0 (3-11) BUN 49 H (7-18) mg/dl Creatinine 2.63 H D (0.6-1.4) mg/dl Est Cr Clr Drug Dosing 29.5 ml/min Est GFR ( Amer) 27.0 Est GFR (Non-Af Amer) 23.3 BUN/Creatinine Ratio 18.7 (10-20) Glucose 52 L* (70-99) mg/dl POC Glucose 145 H (70-99) mg/dl Estimat Average Glucose mg/dl Hemoglobin A1c (4.5-5.6) % Calcium 7.7 L D (8.5-10.1) mg/dl Hepatitis C Ab Screen Blood Type Antibody Screen 12/23/19 12/23/19 12/23/19 Range/Units 20:50 17:39 14:50 WBC (4.8-10.8) K/uL RBC (4.7-6.1) M/uL Hgb (14.0-18.0) g/dL Hct (42-52) % MCV (80-100) fL MCH (25-34) pg MCHC (32-36) g/dL RDW Std Deviation (36.4-46.3) fL RDW Coeff of Josie (11.5-14.5) % Plt Count (130-400) K/uL MPV (7.4-10.4) fL Immature Gran % (Auto) % Neut % (Auto) % Lymph % (Auto) % Dane % (Auto) % Eos % (Auto) % Baso % (Auto) % Immature Gran # (Auto) (0.00-0.02) K/uL Neut # (Auto) (1.4-6.5) K/uL Lymph # (Auto) (1.2-3.4) K/uL Dane # (Auto) (0.11-0.59) K/uL Eos # (Auto) (0-0.5) K/uL Baso # (Auto) (0-0.2) K/uL Sodium (136-145) mmol/L Potassium (3.5-5.1) mmol/L Chloride (98-107) mmol/L Carbon Dioxide (21-32) mmol/L Anion Gap (3-11) BUN (7-18) mg/dl Creatinine (0.6-1.4) mg/dl Est Cr Clr Drug Dosing ml/min Est GFR ( Amer) Est GFR (Non-Af Amer) BUN/Creatinine Ratio (10-20) Glucose (70-99) mg/dl POC Glucose 261 H 177 H 168 H (70-99) mg/dl Estimat Average Glucose mg/dl Hemoglobin A1c (4.5-5.6) % Calcium (8.5-10.1) mg/dl Hepatitis C Ab Screen Blood Type Antibody Screen 12/23/19 12/23/19 12/23/19 Range/Units 12:44 09:52 08:30 WBC (4.8-10.8) K/uL RBC (4.7-6.1) M/uL Hgb (14.0-18.0) g/dL Hct (42-52) % MCV (80-100) fL MCH (25-34) pg MCHC (32-36) g/dL RDW Std Deviation (36.4-46.3) fL RDW Coeff of Josie (11.5-14.5) % Plt Count (130-400) K/uL MPV (7.4-10.4) fL Immature Gran % (Auto) % Neut % (Auto) % Lymph % (Auto) % Dane % (Auto) % Eos % (Auto) % Baso % (Auto) % Immature Gran # (Auto) (0.00-0.02) K/uL Neut # (Auto) (1.4-6.5) K/uL Lymph # (Auto) (1.2-3.4) K/uL Dane # (Auto) (0.11-0.59) K/uL Eos # (Auto) (0-0.5) K/uL Baso # (Auto) (0-0.2) K/uL Sodium (136-145) mmol/L Potassium (3.5-5.1) mmol/L Chloride (98-107) mmol/L Carbon Dioxide (21-32) mmol/L Anion Gap (3-11) BUN (7-18) mg/dl Creatinine (0.6-1.4) mg/dl Est Cr Clr Drug Dosing ml/min Est GFR ( Amer) Est GFR (Non-Af Amer) BUN/Creatinine Ratio (10-20) Glucose (70-99) mg/dl POC Glucose 115 H 82 65 L* (70-99) mg/dl Estimat Average Glucose mg/dl Hemoglobin A1c (4.5-5.6) % Calcium (8.5-10.1) mg/dl Hepatitis C Ab Screen Blood Type Antibody Screen 12/23/19 12/23/19 12/23/19 Range/Units 08:26 08:19 08:19 WBC (4.8-10.8) K/uL RBC (4.7-6.1) M/uL Hgb (14.0-18.0) g/dL Hct (42-52) % MCV (80-100) fL MCH (25-34) pg MCHC (32-36) g/dL RDW Std Deviation (36.4-46.3) fL RDW Coeff of Josie (11.5-14.5) % Plt Count (130-400) K/uL MPV (7.4-10.4) fL Immature Gran % (Auto) % Neut % (Auto) % Lymph % (Auto) % Dane % (Auto) % Eos % (Auto) % Baso % (Auto) % Immature Gran # (Auto) (0.00-0.02) K/uL Neut # (Auto) (1.4-6.5) K/uL Lymph # (Auto) (1.2-3.4) K/uL Dane # (Auto) (0.11-0.59) K/uL Eos # (Auto) (0-0.5) K/uL Baso # (Auto) (0-0.2) K/uL Sodium 141 (136-145) mmol/L Potassium 3.6 (3.5-5.1) mmol/L Chloride 107 (98-107) mmol/L Carbon Dioxide 28 (21-32) mmol/L Anion Gap 6.0 (3-11) BUN 39 H (7-18) mg/dl Creatinine 1.89 H (0.6-1.4) mg/dl Est Cr Clr Drug Dosing 40.9 ml/min Est GFR ( Amer) 40.2 Est GFR (Non-Af Amer) 34.7 BUN/Creatinine Ratio 20.6 H (10-20) Glucose 56 L (70-99) mg/dl POC Glucose 65 L* (70-99) mg/dl Estimat Average Glucose mg/dl Hemoglobin A1c (4.5-5.6) % Calcium 9.2 (8.5-10.1) mg/dl Hepatitis C Ab Screen Blood Type O Positive Antibody Screen NEGATIVE
[2019-12-24] MEDS ORDERED: INSULIN GLARGINE SOLOSTAR 100 UNITS/ML 3 ML PEN SC SCH (09:00)
[2019-12-24] MEDS: INSULIN ASPART 100 UNITS/ML 3 ML PEN SC SCH ×4 (10:01→21:17)
[2019-12-24] MEDS: INSULIN GLARGINE SOLOSTAR 100 UNITS/ML 3 ML PEN SC SCH ×2 (13:05→21:16)
--- NOTE | 2019-12-24 13:24 | Pharmacy Report ---
Glycemic Control Progress Note - Date of Service December 24, 2019 - Scope Glycemic Pharmacist consulted for glycemic control to write orders per [facility] inpatient glycemic control protocol. - Objective Accuchecks BSG(last 24 hours):: 12/23/19 12/23/19 12/23/19 14:50 17:39 20:50 Glucose POC Glucose 168 H 177 H 261 H 12/24/19 12/24/19 12/24/19 01:57 06:22 08:04 Glucose 52 L* POC Glucose 145 H 55 L* 12/24/19 12/24/19 12/24/19 08:25 09:00 12:12 Glucose POC Glucose 59 L* 103 H 129 H HbA1c:: Hemoglobin A1c 9.0 % (4.5-5.6) H 12/24/19 06:22 - Recent Pertinent Medications The patient is currently receiving: * Basal insulin: Lantus 20 SQ x 1 then a scale yesterday evening (received 40 units) then 20 units every 12 hours * Correctional Insulin: Novolog Correction per scale ACHS Goal Range: Low 110 mg/dL - High 140 mg/dL Correction Factor: 20 mg/dL/unit * Prandial insulin: Per carb ratio of 1 unit per 7 grams CHO consumed - Outpatient Anti-Diabetic Meds Lantus 40 units SQ BID - Assessment & Plan ASSESSMENT: * See progress note from 12/23/2019 for more background info, in short: * Pt receiving SQ basal bolus insulin regimen for hyperglycemia secondary to baseline DM (outpatient regimen on hold) and POD 1 from R total hip. * Patient is currently receiving an average of 98 units of insulin per day * 80 units of basal insulin * 18 units of prandial/correctional insulin * BSGs ranging 65 - 261 mg/dl over the past 24hrs * Changes needed to insulin regimen: * AM Fasting BSG = 52 mg/dl. This is below goal range for patient based on inpatient targets and co-morbidities. Per patient interview, he took Lantus 20 units prior to surgery. He then received 60 units of Lantus while hospitalized. Since this was the second hypoglycemic episode will reduce basal by 50% to 40 units daily. Start Lantus 20 units SQ BID with lunch since BSG has recovered. * Post-prandial BSGs are in range therefore no changes needed to CF/CR. * Total daily dose = ~80 units. Redistributed insulin. PLAN FOR INPATIENT GLYCEMIC CONTROL: * Decreasing Lantus to 20 units SQ BID * Continuing correction factor of 20 mg/dl/unit * Continuing carb ratio of 1 unit per 7 grams CHO consumed * Continuing goal range to Low 110 mg/dL - High 140 mg/dL RECOMMENDATIONS FOR DISCHARGE: * Patient's HbA1C is slightly better than July; however, could improve to a goal under 7-8%. * Recommend working with provider for addition of agent such as once weekly GLP- 1 agonist or a Novolog dose with largest meal of the day as patient's current regimen is very basal heavy and likely represents his entire insulin requirements for the day. Thank you.
[2019-12-24] MEDS: METOPROLOL TARTRATE 25 MG TAB PO SCH (21:11)
[2019-12-24] MEDS: DULOXETINE HCL 60 MG CAP PO SCH (21:12)
[2019-12-24] MEDS: DONEPEZIL HCL 5 MG TAB PO SCH (21:12)
[2019-12-24] MEDS: NORTRIPTYLINE HCL 25 MG CAP PO SCH (21:14)
[2019-12-24] MEDS: SENNA 8.6 MG TAB PO SCH (21:14)
[2019-12-25 05:56] LABS: Basophils # (auto) 0.02 K/uL (0-0.2); Basophils % (auto) 0.3 %; Eosinophils # (auto) 0.12 K/uL (0-0.5); Eosinophils % (auto) 1.9 %; Hematocrit (blood only) 23.4 % (42-52); Hemoglobin 7.7 g/dL (14.0-18.0); Immature Granulocytes # (auto) 0.08 K/uL (0.00-0.02); Immature Granulocytes % (auto) 1.3 %; Lymphocytes # (auto) 1.21 K/uL (1.2-3.4); Lymphocytes % (auto) 19.1 %; Mean Corpuscular Hemoglobin 30.3 pg (25-34); Mean Corpuscular Hgb Conc 32.9 g/dL (32-36); Mean Corpuscular Volume 92.1 fL (80-100); Mean Platelet Volume 9.6 fL (7.4-10.4); Monocytes # (auto) 0.69 K/uL (0.11-0.59); Monocytes % (auto) 10.9 %; Neutrophils # (auto) 4.21 K/uL (1.4-6.5); Neutrophils % (auto) 66.5 %; Platelet Count 165 K/uL (130-400); RDW Coefficient of Variation 14.2 % (11.5-14.5); RDW Standard Deviation 46.6 fL (36.4-46.3); Red Blood Count 2.54 M/uL (4.7-6.1); White Blood Count 6.33 K/uL (4.8-10.8)
[2019-12-25] MEDS: ACETAMINOPHEN 500 MG TAB PO SCH ×3 (05:56→21:25)
[2019-12-25 06:30] LABS: RBC Morphology Unremarkable
[2019-12-25 06:49] LABS: BUN Creatinine Ratio 22.2 (10-20); Calcium 8.2 mg/dl (8.5-10.1); Creatinine Clr Calc Pharmacy 33.3 ml/min; Est GFR (African American) 31.2; Est GFR (Non-African American) 26.9; Potassium 3.9 mmol/L (3.5-5.1)
[2019-12-25] MEDS: CARBOHYDRATES FOR HYPOGLYCEMIA PO PRN (06:53)
[2019-12-25] MEDS: FLUTICASONE/VILANTEROL 100/25MCG 14 PUFFS/INHALER INH SCH (08:58)
[2019-12-25] MEDS: INSULIN ASPART 100 UNITS/ML 3 ML PEN SC SCH ×4 (09:01→21:29)
[2019-12-25] MEDS: FERROUS SULFATE 325 MG TAB PO SCH ×2 (09:02→21:25)
[2019-12-25] MEDS: BuPROPion SR 100 MG TABCR PO SCH ×2 (09:03→21:26)
[2019-12-25] MEDS: TAMSULOSIN HCL 0.4 MG CAP PO SCH (09:03)
[2019-12-25] MEDS: APIXABAN 5 MG TABLET PO SCH ×2 (09:04→21:26)
[2019-12-25] MEDS: FUROSEMIDE 40 MG TAB PO SCH (09:05)
[2019-12-25] MEDS: ATORVASTATIN 40 MG TAB PO SCH (09:05)
[2019-12-25] MEDS: ISOSORBIDE MONO EXTENDED REL 30 MG TABCR PO SCH (09:05)
[2019-12-25] MEDS: PANTOprazole 40 MG TAB PO SCH (09:05)
[2019-12-25] MEDS: CITALOPRAM 20 MG TAB PO SCH (09:06)
[2019-12-25] MEDS: AMLODIPINE BESYLATE 5 MG TAB PO SCH (09:06)
[2019-12-25] MEDS: FINASTERIDE 5 MG TAB PO SCH (09:06)
[2019-12-25] MEDS: GABAPENTIN 300 MG CAP PO SCH ×3 (09:07→21:25)
[2019-12-25] MEDS: FOLIC ACID 400 MCG TAB PO SCH ×2 (09:07→21:25)
[2019-12-25] MEDS: CLOPIDOGREL BISULFATE 75 MG TAB PO SCH (09:07)
[2019-12-25] MEDS: MULTIVITAMIN TAB PO SCH (09:07)
[2019-12-25] MEDS: DOCUSATE SODIUM 100 MG CAP PO SCH ×2 (09:13→21:25)
--- NOTE | 2019-12-25 12:33 | Orthopedic Progress Note ---
Date of Service December 25, 2019 Assessment & Plan (1) Degenerative joint disease of right hip: s/p right VILMA POD#2 -DVT ppx: SCDs, TEDs, Eliquis, Plavix -WBAT RLE -PT/OT -am labs - hgb 7.7 -Acute blood loss anemia secondary to surgical loss/dilutional effect. Recheck H&H this afternoon. Patient currently asymptomatic. -DC planning -I discussed with case management about the patient's home scenario which does not sound optimal at this point. Physical therapy stating patient is not at a stage where he would be good to go home and be by himself for long periods of time. [facility] rehab has approved him to stay for PT there. I will discuss this with Dr. Joseph. Admission and Anticipated Discharge Date Admission Date: December 23, 2019 Supervising Physician Co-Signing Physician Notes Patient seen and examined, agree with above assessment plan. Subjective Postop day 2 status post right total hip arthroplasty Patient currently sitting up in his chair at the bedside. Awake and alert. Pain is controlled. Denies shortness of breath, chest pain, lightheadedness. Physical Exam Physical Exam: Pravena dressing is intact and functioning. Moderate drainage noted on the sponge dressing proximally. It looks like he might be developing a small skin blister on the anterior edge of the dressing that is under the Tegaderm section. Thigh has some mild swelling. Calves are soft and nontender. Neurovascular is intact. Toes are mobile. He has good dorsiflexion / plantarflexion strength. Results & Data ([facility]) Vital Signs (Past 12 Hours) Vital Signs Temp Pulse Resp BP Pulse Ox 12/25/19 06:51 36.4 C L 67 18 129/71 91 Laboratory Results Laboratory Results WBC 6.33 K/uL (4.8-10.8) 12/25/19 05:13 RBC 2.54 M/uL (4.7-6.1) L 12/25/19 05:13 Hgb 7.7 g/dL (14.0-18.0) L 12/25/19 05:13 Hct 23.4 % (42-52) L 12/25/19 05:13 MCV 92.1 fL (80-100) 12/25/19 05:13 MCH 30.3 pg (25-34) 12/25/19 05:13 MCHC 32.9 g/dL (32-36) 12/25/19 05:13 RDW Std Deviation 46.6 fL (36.4-46.3) H 12/25/19 05:13 RDW Coeff of Josie 14.2 % (11.5-14.5) 12/25/19 05:13 Plt Count 165 K/uL (130-400) 12/25/19 05:13 MPV 9.6 fL (7.4-10.4) 12/25/19 05:13 Immature Gran % (Auto) 1.3 % 12/25/19 05:13 Neut % (Auto) 66.5 % 12/25/19 05:13 Lymph % (Auto) 19.1 % 12/25/19 05:13 Dunn % (Auto) 10.9 % 12/25/19 05:13 Eos % (Auto) 1.9 % 12/25/19 05:13 Baso % (Auto) 0.3 % 12/25/19 05:13 Immature Gran # (Auto) 0.08 K/uL (0.00-0.02) H 12/25/19 05:13 Neut # (Auto) 4.21 K/uL (1.4-6.5) 12/25/19 05:13 Lymph # (Auto) 1.21 K/uL (1.2-3.4) 12/25/19 05:13 Dunn # (Auto) 0.69 K/uL (0.11-0.59) H 12/25/19 05:13 Eos # (Auto) 0.12 K/uL (0-0.5) 12/25/19 05:13 Baso # (Auto) 0.02 K/uL (0-0.2) 12/25/19 05:13 RBC Morphology Unremarkable 12/25/19 05:13 Sodium 135 mmol/L (136-145) L 12/25/19 05:13 Potassium 3.9 mmol/L (3.5-5.1) D 12/25/19 05:13 Chloride 104 mmol/L (98-107) 12/25/19 05:13 Carbon Dioxide 24 mmol/L (21-32) 12/25/19 05:13 Anion Gap 7.0 (3-11) 12/25/19 05:13 BUN 52 mg/dl (7-18) H 12/25/19 05:13 Creatinine 2.33 mg/dl (0.6-1.4) H D 12/25/19 05:13 Est Cr Clr Drug Dosing 33.3 ml/min 12/25/19 05:13 Est GFR ( Amer) 31.2 12/25/19 05:13 Est GFR (Non-Af Amer) 26.9 12/25/19 05:13 BUN/Creatinine Ratio 22.2 (10-20) H 12/25/19 05:13 Glucose 40 mg/dl (70-99) L* 12/25/19 05:13 POC Glucose 122 mg/dl (70-99) H 12/25/19 12:14 Estimat Average Glucose 212 mg/dl 12/24/19 06:22 Hemoglobin A1c 9.0 % (4.5-5.6) H 12/24/19 06:22 Calcium 8.2 mg/dl (8.5-10.1) L 12/25/19 05:13 Hepatitis C Ab Screen Neg (Neg) 12/24/19 06:22 Blood Type O Positive 12/23/19 08:19 Antibody Screen NEGATIVE 12/23/19 08:19
[2019-12-25 12:58] LABS: Hematocrit (blood only) 24.7 % (42-52)
--- NOTE | 2019-12-25 14:30 | Pharmacy Report ---
Glycemic Control Progress Note - Date of Service December 25, 2019 - Scope Glycemic Pharmacist consulted for glycemic control to write orders per [facility] inpatient glycemic control protocol. - Objective Accuchecks BSG(last 24 hours):: 12/24/19 12/24/19 12/25/19 17:13 20:48 05:13 Glucose 40 L* POC Glucose 131 H 149 H 12/25/19 12/25/19 12/25/19 06:51 07:09 07:16 Glucose POC Glucose 44 L* 72 82 12/25/19 12/25/19 08:05 12:14 Glucose POC Glucose 95 122 H HbA1c:: Hemoglobin A1c 9.0 % (4.5-5.6) H 12/24/19 06:22 - Recent Pertinent Medications The patient is currently receiving: * Basal insulin: Lantus 20 units every 12 hours * Correctional Insulin: Novolog Correction per scale ACHS Goal Range: Low 110 mg/dL - High 140 mg/dL Correction Factor: 20 mg/dL/unit * Prandial insulin: Per carb ratio of 1 unit per 7 grams CHO consumed - Outpatient Anti-Diabetic Meds Lantus 40 units BID - Assessment & Plan ASSESSMENT: * See progress note from 12/23/2019 for more background info, in short: * Pt receiving SQ basal bolus insulin regimen for hyperglycemia secondary to baseline DM (outpatient regimen on hold),stress (POD 2 for hip). * Patient is currently receiving an average of 56 units of insulin per day * 40 units of basal insulin * 16 units of prandial/correctional insulin * BSGs ranging 52 - 149 mg/dl over the past 24hrs * Changes needed to insulin regimen: * AM Fasting BSG = 44 mg/dl. This is BELOW goal range for patient based on inpatient targets and co-morbidities. Therefore Basal insulin will be decre ased. Yesterday patient received half of his home basal dose but had an even lower BSG this morning. Will reduce further to Lantus 20 units daily- start tonight. * Post-prandial BSGs are in range therefore no changes needed to CF/CR. * Total daily dose = <50 units. Reduced basal as appropriate. PLAN FOR INPATIENT GLYCEMIC CONTROL: * Decreasing Lantus to 20 units SQ HS * Continuing correction factor of 20 mg/dl/unit * Continuing carb ratio of 1 unit per 7 grams CHO consumed * Continuing goal range of Low 110 mg/dL - High 140 mg/dL RECOMMENDATIONS FOR DISCHARGE: * Patient's insulin requirements inhouse are extremely different than at home. * Recommend close monitoring as previously mentioned with reduction in Lantus dose plus scheduled Novolog. Thank you.
[2019-12-25] MEDS: OXYCODONE HCL IR 5 MG TAB (IMMEDIATE RELEASE) PO PRN (14:39)
--- NOTE | 2019-12-25 15:13 | Orthopedic Progress Note ---
Date of Service December 25, 2019 Assessment & Plan (1) Degenerative joint disease of right hip: s/p right VILMA POD#2 -DVT ppx: SCDs, DOMENICs, Eliquis, Plavix -WBAT RLE -PT/OT -am labs - hgb 7.7, Acute postoperative blood loss anemia likely secondary to dilutional effect and Intra-/postoperative blood loss, patient on multiple blood thinners. Repeat hgb 8.0. VSS. Patient currently asymptomatic. -Acute kidney injury - Cr 2.33, down from 2.63, baseline 1.89, history of CK stage 2, followed by nephrology. Will avoid nephrotoxic medications, monitor labs, encourage fluid intake. -DC planning -Physical therapy and Occupational Therapy are recommending rehabilitation. We will plan for rehab once medically stabilized. POD#1 -ancef x 24 -DVT ppx: SCDs, TEDs, Eliquis, Plavix -WBAT RLE -PT/OT -PO XR demonstrates well aligned well fixed prothesis without fracture/dislocation -am labs - hgb 9.1 -DC planning Admission and Anticipated Discharge Date Admission Date: December 23, 2019 Subjective Post Operative Progress Note Patient seen sitting in chair at bedside, comfortable, denies complaints, pain well controlled, no acute issues. Denies F/C/N/V/SOB/CP. Review of Systems Review of Systems: All systems reviewed & are unremarkable except as noted in HPI & below Constitutional: as per Subjective / HPI Physical Exam Physical Exam: RLE NVSI +EHL/FHL/TA/GS SILT grossly, +2 DP pulse, compartments soft NT, dressing cdi. Moderate lateral thigh ecchymoses Constitutional: WD/WN, vitals as above Results & Data ([place]) Vital Signs (Past 12 Hours) Vital Signs Temp Pulse Resp BP Pulse Ox 12/25/19 06:51 36.4 C L 67 18 129/71 91 Laboratory Results 12/25/19 12/25/19 12/25/19 Range/Units 12:44 12:14 08:05 WBC (4.8-10.8) K/uL RBC (4.7-6.1) M/uL Hgb 8.0 L (14.0-18.0) g/dL Hct 24.7 L (42-52) % MCV (80-100) fL MCH (25-34) pg MCHC (32-36) g/dL RDW Std Deviation (36.4-46.3) fL RDW Coeff of Josie (11.5-14.5) % Plt Count (130-400) K/uL MPV (7.4-10.4) fL Immature Gran % (Auto) % Neut % (Auto) % Lymph % (Auto) % Bell % (Auto) % Eos % (Auto) % Baso % (Auto) % Immature Gran # (Auto) (0.00-0.02) K/uL Neut # (Auto) (1.4-6.5) K/uL Lymph # (Auto) (1.2-3.4) K/uL Bell # (Auto) (0.11-0.59) K/uL Eos # (Auto) (0-0.5) K/uL Baso # (Auto) (0-0.2) K/uL RBC Morphology Sodium (136-145) mmol/L Potassium (3.5-5.1) mmol/L Chloride (98-107) mmol/L Carbon Dioxide (21-32) mmol/L Anion Gap (3-11) BUN (7-18) mg/dl Creatinine (0.6-1.4) mg/dl Est Cr Clr Drug Dosing ml/min Est GFR ( Amer) Est GFR (Non-Af Amer) BUN/Creatinine Ratio (10-20) Glucose (70-99) mg/dl POC Glucose 122 H 95 (70-99) mg/dl Calcium (8.5-10.1) mg/dl 12/25/19 12/25/19 12/25/19 Range/Units 07:16 07:09 06:51 WBC (4.8-10.8) K/uL RBC (4.7-6.1) M/uL Hgb (14.0-18.0) g/dL Hct (42-52) % MCV (80-100) fL MCH (25-34) pg MCHC (32-36) g/dL RDW Std Deviation (36.4-46.3) fL RDW Coeff of Josie (11.5-14.5) % Plt Count (130-400) K/uL MPV (7.4-10.4) fL Immature Gran % (Auto) % Neut % (Auto) % Lymph % (Auto) % Bell % (Auto) % Eos % (Auto) % Baso % (Auto) % Immature Gran # (Auto) (0.00-0.02) K/uL Neut # (Auto) (1.4-6.5) K/uL Lymph # (Auto) (1.2-3.4) K/uL Bell # (Auto) (0.11-0.59) K/uL Eos # (Auto) (0-0.5) K/uL Baso # (Auto) (0-0.2) K/uL RBC Morphology Sodium (136-145) mmol/L Potassium (3.5-5.1) mmol/L Chloride (98-107) mmol/L Carbon Dioxide (21-32) mmol/L Anion Gap (3-11) BUN (7-18) mg/dl Creatinine (0.6-1.4) mg/dl Est Cr Clr Drug Dosing ml/min Est GFR ( Amer) Est GFR (Non-Af Amer) BUN/Creatinine Ratio (10-20) Glucose (70-99) mg/dl POC Glucose 82 72 44 L* (70-99) mg/dl Calcium (8.5-10.1) mg/dl 12/25/19 12/25/19 12/24/19 Range/Units 05:13 05:13 20:48 WBC 6.33 (4.8-10.8) K/uL RBC 2.54 L (4.7-6.1) M/uL Hgb 7.7 L (14.0-18.0) g/dL Hct 23.4 L (42-52) % MCV 92.1 (80-100) fL MCH 30.3 (25-34) pg MCHC 32.9 (32-36) g/dL RDW Std Deviation 46.6 H (36.4-46.3) fL RDW Coeff of Josie 14.2 (11.5-14.5) % Plt Count 165 (130-400) K/uL MPV 9.6 (7.4-10.4) fL Immature Gran % (Auto) 1.3 % Neut % (Auto) 66.5 % Lymph % (Auto) 19.1 % Bell % (Auto) 10.9 % Eos % (Auto) 1.9 % Baso % (Auto) 0.3 % Immature Gran # (Auto) 0.08 H (0.00-0.02) K/uL Neut # (Auto) 4.21 (1.4-6.5) K/uL Lymph # (Auto) 1.21 (1.2-3.4) K/uL Bell # (Auto) 0.69 H (0.11-0.59) K/uL Eos # (Auto) 0.12 (0-0.5) K/uL Baso # (Auto) 0.02 (0-0.2) K/uL RBC Morphology Unremarkable Sodium 135 L (136-145) mmol/L Potassium 3.9 D (3.5-5.1) mmol/L Chloride 104 (98-107) mmol/L Carbon Dioxide 24 (21-32) mmol/L Anion Gap 7.0 (3-11) BUN 52 H (7-18) mg/dl Creatinine 2.33 H D (0.6-1.4) mg/dl Est Cr Clr Drug Dosing 33.3 ml/min Est GFR ( Amer) 31.2 Est GFR (Non-Af Amer) 26.9 BUN/Creatinine Ratio 22.2 H (10-20) Glucose 40 L* (70-99) mg/dl POC Glucose 149 H (70-99) mg/dl Calcium 8.2 L (8.5-10.1) mg/dl 12/24/19 Range/Units 17:13 WBC (4.8-10.8) K/uL RBC (4.7-6.1) M/uL Hgb (14.0-18.0) g/dL Hct (42-52) % MCV (80-100) fL MCH (25-34) pg MCHC (32-36) g/dL RDW Std Deviation (36.4-46.3) fL RDW Coeff of Josie (11.5-14.5) % Plt Count (130-400) K/uL MPV (7.4-10.4) fL Immature Gran % (Auto) % Neut % (Auto) % Lymph % (Auto) % Bell % (Auto) % Eos % (Auto) % Baso % (Auto) % Immature Gran # (Auto) (0.00-0.02) K/uL Neut # (Auto) (1.4-6.5) K/uL Lymph # (Auto) (1.2-3.4) K/uL Bell # (Auto) (0.11-0.59) K/uL Eos # (Auto) (0-0.5) K/uL Baso # (Auto) (0-0.2) K/uL RBC Morphology Sodium (136-145) mmol/L Potassium (3.5-5.1) mmol/L Chloride (98-107) mmol/L Carbon Dioxide (21-32) mmol/L Anion Gap (3-11) BUN (7-18) mg/dl Creatinine (0.6-1.4) mg/dl Est Cr Clr Drug Dosing ml/min Est GFR ( Amer) Est GFR (Non-Af Amer) BUN/Creatinine Ratio (10-20) Glucose (70-99) mg/dl POC Glucose 131 H (70-99) mg/dl Calcium (8.5-10.1) mg/dl
[2019-12-25] MEDS ORDERED: INSULIN GLARGINE SOLOSTAR 100 UNITS/ML 3 ML PEN SC SCH (21:00)
[2019-12-25] MEDS: SENNA 8.6 MG TAB PO SCH (21:25)
[2019-12-25] MEDS: DULOXETINE HCL 60 MG CAP PO SCH (21:25)
[2019-12-25] MEDS: NORTRIPTYLINE HCL 25 MG CAP PO SCH (21:25)
[2019-12-25] MEDS: DONEPEZIL HCL 5 MG TAB PO SCH (21:25)
[2019-12-25] MEDS: METOPROLOL TARTRATE 25 MG TAB PO SCH (21:25)
[2019-12-26 05:51] LABS: Basophils # (auto) 0.02 K/uL (0-0.2); Basophils % (auto) 0.4 %; Eosinophils # (auto) 0.17 K/uL (0-0.5); Hematocrit (blood only) 23.4 % (42-52); Hemoglobin 7.7 g/dL (14.0-18.0); Immature Granulocytes # (auto) 0.19 K/uL (0.00-0.02); Immature Granulocytes % (auto) 3.4 %; Lymphocytes % (auto) 17.8 %; Mean Corpuscular Hemoglobin 31.2 pg (25-34); Mean Corpuscular Hgb Conc 32.9 g/dL (32-36); Mean Corpuscular Volume 94.7 fL (80-100); Mean Platelet Volume 9.5 fL (7.4-10.4); Monocytes # (auto) 0.63 K/uL (0.11-0.59); Monocytes % (auto) 11.2 %; Neutrophils # (auto) 3.62 K/uL (1.4-6.5); Neutrophils % (auto) 64.2 %; Nucleated RBC # (auto) 0.04 K/uL (0-0); Nucleated RBC % (auto) 0.8 %; Platelet Count 169 K/uL (130-400); RDW Coefficient of Variation 14.7 % (11.5-14.5); RDW Standard Deviation 49.9 fL (36.4-46.3); Red Blood Count 2.47 M/uL (4.7-6.1); White Blood Count 5.63 K/uL (4.8-10.8)
[2019-12-26] MEDS: ACETAMINOPHEN 500 MG TAB PO SCH ×2 (06:13→13:30)
[2019-12-26 06:22] LABS: RBC Morphology Unremarkable
[2019-12-26 06:27] LABS: BUN Creatinine Ratio 20.1 (10-20); Calcium 8.2 mg/dl (8.5-10.1); Creatinine Clr Calc Pharmacy 37.8 ml/min; Est GFR (African American) 36.4; Est GFR (Non-African American) 31.4; Potassium 4.3 mmol/L (3.5-5.1)
[2019-12-26] MEDS: CARBOHYDRATES FOR HYPOGLYCEMIA PO PRN ×2 (08:28→08:45)
[2019-12-26] MEDS: FLUTICASONE/VILANTEROL 100/25MCG 14 PUFFS/INHALER INH SCH (08:29)
[2019-12-26] MEDS: MULTIVITAMIN TAB PO SCH (08:30)
[2019-12-26] MEDS: FERROUS SULFATE 325 MG TAB PO SCH (08:30)
[2019-12-26] MEDS: DOCUSATE SODIUM 100 MG CAP PO SCH (08:30)
[2019-12-26] MEDS: BuPROPion SR 100 MG TABCR PO SCH (08:30)
[2019-12-26] MEDS: CITALOPRAM 20 MG TAB PO SCH (08:30)
[2019-12-26] MEDS: FOLIC ACID 400 MCG TAB PO SCH (08:30)
[2019-12-26] MEDS: FUROSEMIDE 40 MG TAB PO SCH (08:30)
[2019-12-26] MEDS: ISOSORBIDE MONO EXTENDED REL 30 MG TABCR PO SCH (08:30)
[2019-12-26] MEDS: GABAPENTIN 300 MG CAP PO SCH ×2 (08:30→13:30)
[2019-12-26] MEDS: TAMSULOSIN HCL 0.4 MG CAP PO SCH (08:30)
[2019-12-26] MEDS: ATORVASTATIN 40 MG TAB PO SCH (08:30)
[2019-12-26] MEDS: APIXABAN 5 MG TABLET PO SCH (08:30)
[2019-12-26] MEDS: PANTOprazole 40 MG TAB PO SCH (08:30)
[2019-12-26] MEDS: FINASTERIDE 5 MG TAB PO SCH (08:31)
[2019-12-26] MEDS: CLOPIDOGREL BISULFATE 75 MG TAB PO SCH (08:31)
[2019-12-26] MEDS: AMLODIPINE BESYLATE 5 MG TAB PO SCH (08:34)
--- NOTE | 2019-12-26 08:45 | Communication Note ---
Date of Service: December 26, 2019 I discussed this case with Dr. Garrett concerning the patient's [place]. Creatinine has been slowly trending down at this point in time. No further treatment needed at this time. Continue to follow labs when he goes to [facility]. Plan for CBC and PRP regularly. Hemoglobin 7.7 this morning. Patient continues to remain asymptomatic. Continue to follow.
[2019-12-26] MEDS: INSULIN ASPART 100 UNITS/ML 3 ML PEN SC SCH ×3 (08:53→16:59)
--- NOTE | 2019-12-26 09:11 | Orthopedic Progress Note ---
Date of Service December 26, 2019 Assessment & Plan (1) Degenerative joint disease of right hip: s/p right VILMA POD#3 -DVT ppx: SCDs, DOMENICs, Eliquis, Plavix -WBAT RLE -PT/OT -am labs - hgb 7.7, Acute postoperative blood loss anemia likely secondary to dilutional effect and Intra-/postoperative blood loss, patient on multiple blood thinners. VSS. Patient currently asymptomatic. 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 Will avoid nephrotoxic medications, monitor labs, encourage fluid intake. 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 We will plan for rehab once medically stabilized. POD#2 -DVT ppx: SCDs, DOMENICs, Eliquis, Plavix -WBAT RLE -PT/OT -am labs - hgb 7.7, Acute postoperative blood loss anemia likely secondary to dilutional effect and Intra-/postoperative blood loss, patient on multiple blood thinners. Repeat hgb 8.0. VSS. Patient currently asymptomatic. -Acute kidney injury - Cr 2.33, down from 2.63, baseline 1.89, history of CK stage 2, followed by nephrology. Will avoid nephrotoxic medications, monitor labs, encourage fluid intake. -DC planning -Physical therapy and Occupational Therapy are recommending rehabilitation. We will plan for rehab once medically stabilized. POD#1 -ancef x 24 -DVT ppx: SCDs, DOMENICs, Eliquis, Plavix -WBAT RLE -PT/OT -PO XR demonstrates well aligned well fixed prothesis without fracture/dislocati on -am labs - hgb 9.1 -DC planning Admission and Anticipated Discharge Date Admission Date: December 23, 2019 Subjective Post Operative Progress Note Patient seen sitting in bed, comfortable, denies complaints, pain well controlled, no acute issues. Denies F/C/N/V/SOB/CP. Denies feeling dizzy or light headed Review of Systems Review of Systems: All systems reviewed & are unremarkable except as noted in HPI & below Constitutional: as per Subjective / HPI Physical Exam Physical Exam: RLE NVSI +EHL/FHL/TA/GS SILT grossly, +2 DP pulse, compartments soft NT, incisional vac in place, +ecchymosis Constitutional: WD/WN, vitals as above Results & Data ([facility]) Vital Signs (Past 12 Hours) Vital Signs Temp Pulse Resp BP Pulse Ox 12/26/19 07:56 36.5 C 67 14 152/78 H 94 12/25/19 23:39 36.4 C L 70 20 134/75 95 12/25/19 21:23 74 16 150/75 H Laboratory Results 12/26/19 12/26/19 12/26/19 Range/Units 09:02 08:42 08:22 WBC (4.8-10.8) K/uL RBC (4.7-6.1) M/uL Hgb (14.0-18.0) g/dL Hct (42-52) % MCV (80-100) fL MCH (25-34) pg MCHC (32-36) g/dL RDW Std Deviation (36.4-46.3) fL RDW Coeff of Josie (11.5-14.5) % Plt Count (130-400) K/uL MPV (7.4-10.4) fL Immature Gran % (Auto) % Neut % (Auto) % Lymph % (Auto) % [place] % (Auto) % Eos % (Auto) % Baso % (Auto) % Immature Gran # (Auto) (0.00-0.02) K/uL Neut # (Auto) (1.4-6.5) K/uL Lymph # (Auto) (1.2-3.4) K/uL [place] # (Auto) (0.11-0.59) K/uL Eos # (Auto) (0-0.5) K/uL Baso # (Auto) (0-0.2) K/uL Absolute Nucleated RBC (0-0) K/uL Nucleated RBC % (auto) % RBC Morphology Sodium (136-145) mmol/L Potassium (3.5-5.1) mmol/L Chloride (98-107) mmol/L Carbon Dioxide (21-32) mmol/L Anion Gap (3-11) BUN (7-18) mg/dl Creatinine (0.6-1.4) mg/dl Est Cr Clr Drug Dosing ml/min Est GFR ( Amer) Est GFR (Non-Af Amer) BUN/Creatinine Ratio (10-20) Glucose (70-99) mg/dl POC Glucose 108 H 70 54 L* (70-99) mg/dl Calcium (8.5-10.1) mg/dl 12/26/19 12/26/19 12/26/19 Range/Units 08:19 04:53 04:53 WBC 5.63 (4.8-10.8) K/uL RBC 2.47 L (4.7-6.1) M/uL Hgb 7.7 L (14.0-18.0) g/dL Hct 23.4 L (42-52) % MCV 94.7 (80-100) fL MCH 31.2 (25-34) pg MCHC 32.9 (32-36) g/dL RDW Std Deviation 49.9 H (36.4-46.3) fL RDW Coeff of Josie 14.7 H (11.5-14.5) % Plt Count 169 (130-400) K/uL MPV 9.5 (7.4-10.4) fL Immature Gran % (Auto) 3.4 % Neut % (Auto) 64.2 % Lymph % (Auto) 17.8 % [place] % (Auto) 11.2 % Eos % (Auto) 3.0 % Baso % (Auto) 0.4 % Immature Gran # (Auto) 0.19 H (0.00-0.02) K/uL Neut # (Auto) 3.62 (1.4-6.5) K/uL Lymph # (Auto) 1.00 L (1.2-3.4) K/uL [place] # (Auto) 0.63 H (0.11-0.59) K/uL Eos # (Auto) 0.17 (0-0.5) K/uL Baso # (Auto) 0.02 (0-0.2) K/uL Absolute Nucleated RBC 0.04 H (0-0) K/uL Nucleated RBC % (auto) 0.8 % RBC Morphology Unremarkable Sodium 141 (136-145) mmol/L Potassium 4.3 (3.5-5.1) mmol/L Chloride 110 H (98-107) mmol/L Carbon Dioxide 29 (21-32) mmol/L Anion Gap 2.0 L (3-11) BUN 41 H (7-18) mg/dl Creatinine 2.05 H (0.6-1.4) mg/dl Est Cr Clr Drug Dosing 37.8 ml/min Est GFR ( Amer) 36.4 Est GFR (Non-Af Amer) 31.4 BUN/Creatinine Ratio 20.1 H (10-20) Glucose 77 (70-99) mg/dl POC Glucose 57 L* (70-99) mg/dl Calcium 8.2 L (8.5-10.1) mg/dl 12/25/19 12/25/19 12/25/19 Range/Units 20:47 17:13 12:44 WBC (4.8-10.8) K/uL RBC (4.7-6.1) M/uL Hgb 8.0 L (14.0-18.0) g/dL Hct 24.7 L (42-52) % MCV (80-100) fL MCH (25-34) pg MCHC (32-36) g/dL RDW Std Deviation (36.4-46.3) fL RDW Coeff of Josie (11.5-14.5) % Plt Count (130-400) K/uL MPV (7.4-10.4) fL Immature Gran % (Auto) % Neut % (Auto) % Lymph % (Auto) % [place] % (Auto) % Eos % (Auto) % Baso % (Auto) % Immature Gran # (Auto) (0.00-0.02) K/uL Neut # (Auto) (1.4-6.5) K/uL Lymph # (Auto) (1.2-3.4) K/uL [place] # (Auto) (0.11-0.59) K/uL Eos # (Auto) (0-0.5) K/uL Baso # (Auto) (0-0.2) K/uL Absolute Nucleated RBC (0-0) K/uL Nucleated RBC % (auto) % RBC Morphology Sodium (136-145) mmol/L Potassium (3.5-5.1) mmol/L Chloride (98-107) mmol/L Carbon Dioxide (21-32) mmol/L Anion Gap (3-11) BUN (7-18) mg/dl Creatinine (0.6-1.4) mg/dl Est Cr Clr Drug Dosing ml/min Est GFR ( Amer) Est GFR (Non-Af Amer) BUN/Creatinine Ratio (10-20) Glucose (70-99) mg/dl POC Glucose 80 80 (70-99) mg/dl Calcium (8.5-10.1) mg/dl 12/25/19 Range/Units 12:14 WBC (4.8-10.8) K/uL RBC (4.7-6.1) M/uL Hgb (14.0-18.0) g/dL Hct (42-52) % MCV (80-100) fL MCH (25-34) pg MCHC (32-36) g/dL RDW Std Deviation (36.4-46.3) fL RDW Coeff of Josie (11.5-14.5) % Plt Count (130-400) K/uL MPV (7.4-10.4) fL Immature Gran % (Auto) % Neut % (Auto) % Lymph % (Auto) % [place] % (Auto) % Eos % (Auto) % Baso % (Auto) % Immature Gran # (Auto) (0.00-0.02) K/uL Neut # (Auto) (1.4-6.5) K/uL Lymph # (Auto) (1.2-3.4) K/uL [place] # (Auto) (0.11-0.59) K/uL Eos # (Auto) (0-0.5) K/uL Baso # (Auto) (0-0.2) K/uL Absolute Nucleated RBC (0-0) K/uL Nucleated RBC % (auto) % RBC Morphology Sodium (136-145) mmol/L Potassium (3.5-5.1) mmol/L Chloride (98-107) mmol/L Carbon Dioxide (21-32) mmol/L Anion Gap (3-11) BUN (7-18) mg/dl Creatinine (0.6-1.4) mg/dl Est Cr Clr Drug Dosing ml/min Est GFR ( Amer) Est GFR (Non-Af Amer) BUN/Creatinine Ratio (10-20) Glucose (70-99) mg/dl POC Glucose 122 H (70-99) mg/dl Calcium (8.5-10.1) mg/dl
--- NOTE | 2019-12-26 15:20 | Pharmacy Report ---
Glycemic Control Progress Note - Date of Service December 26, 2019 - Scope Glycemic Pharmacist consulted for glycemic control to write orders per [facility] inpatient glycemic control protocol. - Objective Accuchecks BSG(last 24 hours):: 12/25/19 12/25/19 12/26/19 17:13 20:47 04:53 Glucose 77 POC Glucose 80 80 12/26/19 12/26/19 12/26/19 08:19 08:22 08:42 Glucose POC Glucose 57 L* 54 L* 70 12/26/19 12/26/19 09:02 12:34 Glucose POC Glucose 108 H 105 H HbA1c:: Hemoglobin A1c 9.0 % (4.5-5.6) H 12/24/19 06:22 - Recent Pertinent Medications The patient is currently receiving: * Basal insulin: Lantus 20 units every 24 hours (at bedtime) * Correctional Insulin: Novolog Correction per scale ACHS Goal Range: Low 110 mg/dL - High 140 mg/dL Correction Factor: 20 mg/dL/unit * Prandial insulin: Per carb ratio of 1 unit per 7 grams CHO consumed - Outpatient Anti-Diabetic Meds Lantus 40 units SQ BID - Assessment & Plan ASSESSMENT: * See progress note from 12/23/2019 for more background info, in short: * Pt receiving SQ basal bolus insulin regimen for hyperglycemia secondary to baseline DM (outpatient regimen on hold). Patient Post-op day 3. * Patient is currently receiving an average of 37 units of insulin per day * 20 units of basal insulin * 17 units of prandial/correctional insulin * BSGs ranging 44 - 122 mg/dl over the past 24hrs * Changes needed to insulin regimen: * AM Fasting BSG = 54 mg/dl. This is goal range for patient based on inpatient targets and co-morbidities. Basal insulin will be held. * Post-prandial BSGs are in range but will loosen them currently. * Total daily dose = < 30 units/day PLAN FOR INPATIENT GLYCEMIC CONTROL: * HOLD Lantus * LOOSENING correction factor to 25 mg/dl/unit * LOOSENING carb ratio to 1 unit per 9 grams CHO consumed * Continuing goal range of Low 110 mg/dL - High 140 mg/dL RECOMMENDATIONS FOR DISCHARGE: * Hold Lantus until fasting BSG > 100 mg/dL. Patient will most likely require only 10-20 units/day as inpatient diet different than outpatient diet. * Novolog 5 units with meals; hold if BSG < 100 mg/dL. Thank you.
--- NOTE | 2019-12-27 08:45 | Discharge Summary ---
Date of Service December 26, 2019 Admission HPI Per Admitting Provider The patient is a 74 year old male who presents with complaints of severe right hip pain and AVN/DJD. The patient has failed outpatient conservative treatments to this point which included NSAIDs and a home exercise, walking program. The patient's pain and limited function have progressed to the point where they severely hinder their activities of daily living and they no longer tolerate exercise programs. They are requesting to proceed with total hip replacement surgery. Principal Diagnosis Right total hip replacement -Right hip AVN/DJD Discharge Exam RLE NVSI +EHL/FHL/TA/GS SILT grossly, +2 DP pulse, compartments soft NT, dressing cdi. Constitutional WD/WN, vitals as above Discharge Data Allergies Allergy/AdvReac Type Severity Reaction Status Date / Time No Known Allergies Allergy Unverified 12/23/19 09:02 Consultations 12/24/19 08:00 Consult Case Management - Discharge Planning Routine Procedures Performed Operation Date: 12/23/19 09:35 Actual Procedures p Right Posterior Total Hip Arthroplasty(Right) - Ignacio Camacho DO Hospital Course (1) Degenerative joint disease of right hip: The patient is a 74 -year-old male who presents with long standing history of severe hip AVN/ DJD and failed outpatient conservative treatments. The patient's symptoms have progressed to the point where it has been difficult to perform even normal activities of daily living. I indicated the patient for a Right total hip arthroplasty, the risks, benefits and complications of the procedure include but not limited to infection, bleeding, damage to bone, nerves, vessels, surrounding soft tissue, may develop blood clots, loss of function, leg length discrepancy, dislocation, failure of the components, loosening of the components, the need for additional surgery and . The patient wished to proceed with surgery at this time and informed consent was obtained. Hospital Course: On 12/23/19 the patient was taken to the operating room, adequate anesthesia administered and underwent a right total hip arthroplasty. The patient tolerated the procedure well and was taken to the PACU in stable condition. Post-operatively the patient was started on a DVT ppx medication and given appropriate IV antibiotics. Consults were placed to physical therapy, occupational therapy and case management. On POD#1, the patient did well overnight and their pain was well controlled. Labs were drawn and the Hgb was 9.1. Cr elevated to 2.63, baseline 1.89, avoided nephrotoxic medication and encouraged PO fluids, monitored labs. The patient progressed well with PT. Incisional vac was clean dry and intact. On POD#2, the patient continued to progress well with PT. Labs drawn, Hgb 7.7, acute blood loss anemia secondary to tawnya-operative blood loss and dilutional effect, patient's VSS and remained asymptomatic. Cr improved to 2.33. On POD#3, the patient continued to progress well with PT. Labs drawn, Hgb stable at 7.7, acute blood loss anemia secondary to tawnya-operative blood loss and dilutional effect, patient's VSS and remained asymptomatic. Cr improved to 2.05. Instructed patient to follow up with PCP and Nephrology post operative. Repeat lab draw orders provided for CBC and BMP The patients hospital stay was relatively uneventful and they were deemed stable by the orthopedic team and consultants to be discharged to rehab facility on 12/26/19. Discharge Instructions: Upon discharge the patient may weight bear as tolerates through their operative extremity. They were instructed to keep the incision clean and dry at all times. The patient may shower but should not submerge the incision, avoid bathing, pools and hot tubes. The patient was given a script for pain medication and should take as instructed. The patient was instructed to continue to take his home blood thinner Eliquis and Plavix and should take as directed. The patient was instructed to not drive or travel for long distances until cleared to do so. If the patient develops any symptoms of fevers, chills, nausea, vomiting, increased redness, swelling, pain or drainage from the surgical site, they should notify the office and/or proceed to the nearest em ergency room. The patient should follow up in 10-14 days after surgery for their routine post-operative follow-up appointment and should call the office to confirm the date and time. s/p right VILMA POD#3 -DVT ppx: SCDs, TEDs, Eliquis, Plavix -WBAT RLE -PT/OT -am labs - hgb 7.7, Acute postoperative blood loss anemia likely secondary to dilutional effect and Intra-/postoperative blood loss, patient on multiple blood thinners. VSS. Patient currently asymptomatic. 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 Will avoid nephrotoxic medications, monitor labs, encourage fluid intake. F/U with mobile application tester -DC planning -Physical therapy and Occupational Therapy are recommending rehabilitation. We will plan for rehab once medically stabilized. POD#2 -DVT ppx: SCDs, TEDs, Eliquis, Plavix -WBAT RLE -PT/OT -am labs - hgb 7.7, Acute postoperative blood loss anemia likely secondary to dilutional effect and Intra-/postoperative blood loss, patient on multiple blood thinners. Repeat hgb 8.0. VSS. Patient currently asymptomatic. -Acute kidney injury - Cr 2.33, down from 2.63, baseline 1.89, history of CK stage 2, followed by nephrology. Will avoid nephrotoxic medications, monitor labs, encourage fluid intake. -DC planning -Physical therapy and Occupational Therapy are recommending rehabilitation. We will plan for rehab once medically stabilized. POD#1 -ancef x 24 -DVT ppx: SCDs, TEDs, Eliquis, Plavix -WBAT RLE -PT/OT -PO XR demonstrates well aligned well fixed prothesis without fracture/dislocation -am labs - hgb 9.1 -DC planning Total Time Total Time Spent Total Time Spent (In Minutes): 60 Discharge Plan Discharge Items Patient Disposition: Transfer Inpatient Rehab Fac Reason For Visit: Primary Osteoarthritis Right Hip Discharge Diagnosis: Right total hip replacement -Right hip DJD/AVN Condition on Discharge: Good Activity: Per Instructions section Lifting: Wait until after follow-up appointment Bathing: Keep incision dry Bathing Comment: No bathing, pools or hot tubs Sexual Activity: Wait until after follow-up appointment Exercise/Sports: Wait until after follow-up appointment Driving/Machine Use: No driving Weightbearing: Full weightbearing Non-emergency contact: Primary Care Provider and Surgeon Call non-emergency contact if: you have any medication questions, your symptoms worsen, your pain is not controlled, your pain is worsening, your pain is unusual for you, your pain is concerning for you, you have a fever, your temperature is above 101, your wound has increased redness, your wound has increased drainage and your wound pain has increased Follow-up/Referrals: Devin Calderon, DO [Primary Care Provider] - Diet: Carb Consistent or DM2 Addtl Attending Provider Instructions: INSULIN REGIMEN ! HOLD INSULIN 40 BID WRITTEN BELOW. THIS WAS PATIENT'S HOME DOSING, HOWEVER HIS BSG'S HAVE BEEN RANGING BETWEEN 54 AND 122. HE HAS BEEN USING MUCH LESS INSULIN IN HOSPITAL SETTING THAN AT HOME. PHARMACY RECOMMENDATIONS BELOW: PLAN FOR INPATIENT GLYCEMIC CONTROL: HOLD Lantus LOOSENING correction factor to 25 mg/dl/unit LOOSENING carb ratio to 1 unit per 9 grams CHO consumed Continuing goal range of Low 110 mg/dL - High 140 mg/dL RECOMMENDATIONS FOR DISCHARGE: Hold Lantus until fasting BSG > 100 mg/dL. Patient will most likely require only 10-20 units/day as inpatient diet different than outpatient diet. Novolog 5 units with meals; hold if BSG < 80 mg/dL. BSG'S AC AND HS ( PATIENT TO HAVE DAILY CBC/PRP LAB DRAWS. ) ACTIVITY RECOMMENDATIONS: SELF CARE INSTRUCTIONS AFTER TOTAL HIP REPLACEMENT Until the incision and soft tissues around your hip have healed, there is a possibility that the hip prosthesis could dislocate. A. Observe the following precautions to prevent dislocation: 1. Don't bend your hip greater than 90 degrees. 2. Avoid crossing your legs or ankles while standing or lying. 3. Sit with your feet placed 6 inches apart. 4. When sitting, keep your knees below your hips. Sit on a firm surface, avoid deep, soft chairs and couches. Use an elevated toilet seat in the bathroom. 5. Don't bend over at the waist. Use a long handled shoehorn and a sock aid to help you put on your shoes and socks. A supermarket manager can help you roller picker objects that are too high or too low to reach. 6. Keep car riding to a minimum for at least one month after surgery. B. Your balance may be shaky for a while. Use crutches or a walker until directed by your doctor. C. Use hand rails when walking on stairs. D. Wear low heeled shoes with non-slip soles. E. Be sure that your floors are free of things that could trip you - throw rugs, electrical cords, small objects. Avoid wet and waxed floors, especially with crutches and canes. F. Try to walk several times a day with rest periods between. G. Continue with all the exercises taught to you in the hospital. Again, make walking a part of your daily routine. SPECIAL CARE INSTRUCTIONS: VERY IMPORTANT TO READ AND REVIEW A. You may still be at risk for phlebitis and blood clots. 1. Wear surgical stockings (DOMENIC hose) for 2 weeks after surgery to improve circulation and reduce swelling. 2. Take your home blood thinner, Eliquis and Plavix or as directed by your doctor. This is your blood thinner. 3. High risk patients may be prescribed a stronger blood thinner if necessary. 4. If you are on Coumadin normally, your family doctor/mold cooler should monitor your blood work. Expect a phone call the day of or the day after bloodwork is drawn to adjust your dosage. B. You must take antibiotics before having dental work, bladder, bowel and other surgery. Your doctor will provide you with a permanent card to carry describing precautions. C. Call [facility] if you have a fever, redness or swelling around the incision, cloudy drainage from incision, or sudden increase in pain in your hip, not relieved by your regular pain medication. D. Please call the office at if you have any concerns or questions about your operation or recovery. * YOU MAY SHOWER, NO TUB BATHS UNTIL CLEARED BY YOUR DOCTOR. * WEAR DOMENIC HOSE 20 HOURS PER DAY FOR 2 WEEKS. * YOU SHOULD USE A WALKER OR CRUTCHES FOR 2-4 WEEKS. THIS WILL HELP PREVENT STRAIN ON YOUR HIP MUSCLE AND ALLOW IT TO HEAL PROPERLY. YOU MAY WEAN TO A CANE TOLERATED. * MOST PATIENTS WILL HAVE HOME NURSING FOR THERAPY. IF YOU DECIDE TO DO OUTPATIENT PHYSICAL THERAPY, PLEASE SCHEDULE THIS 3 TIMES PER WEEK. *PREVENA incisional vac is a special dressing covering your incision. This dressing provides a sterile dry environment while you are healing. The dressing is to be left in place for 7 days post-operatively. Your home nurse or surgeon will remove. If you develop any redness or blisters or have any questions notify your surgeon immediately. FOLLOW UP VISIT: If appointment is not already scheduled: Please call [facility] to make a follow-up appointment for 2 weeks after your surgery at . Please follow-up with your PCP and mobile application tester within 1 week upon discharge. Pending Studies at Discharge: No Stand-Alone Forms: [employer], Smoking Cessation Skilled Items Patient informed of condition?: Yes DNR: No Discharge Level of Care: Acute rehab Communicable Disease: No Discharge Prognosis: Stable Lines: None Urinary Catheter: No Medications and DC Order Prescriptions: New acetaminophen 500 mg Tablet 1,000 mg PO Q8 PRN (Reason: pain) Qty: 90 RF: 0 oxycodone 5 mg Tablet 5 mg PO Q6H MDD 4 PRN (Reason: pain) Qty: 30 RF: 0 sennosides [Senokot] 8.6 mg Tablet 17.2 mg PO HS PRN (Reason: constipation) Qty: 28 RF: 0 insulin aspart U-100 [Novolog Flexpen U-100 Insulin] 100 unit/mL (3 mL) insulin pen 5 units SQ TID 5 Days Qty: 0.75 RF: 0 Continued furosemide [Lasix] 40 mg Tablet 40 mg PO QAM RF: 0 donepezil [Aricept] 5 mg Tablet 5 mg PO HS RF: 0 isosorbide mononitrate 30 mg Tablet Extended Release 24 Hr 30 mg PO QAM RF: 0 clopidogrel [Plavix] 75 mg Tablet 75 mg PO QAM RF: 0 folic acid 400 mcg Tablet 0.4 mg PO BID RF: 0 bupropion HCl [Wellbutrin SR] 100 mg Tablet Sustained-Release 12 Hr 100 mg PO BID RF: 0 nortriptyline 25 mg Capsule 50 mg PO HS RF: 0 citalopram [Celexa] 20 mg Tablet 20 mg PO QAM RF: 0 tamsulosin [Flomax] 0.4 mg Capsule 0.4 mg PO QAM RF: 0 gabapentin 800 mg Tablet 300 mg PO TID RF: 0 amlodipine [Norvasc] 10 mg Tablet 10 mg PO QAM RF: 0 pantoprazole [Protonix] 40 mg Tablet,Delayed Release (Dr/Ec) 40 mg PO QAM RF: 0 ferrous sulfate 325 mg (65 mg iron) Tablet 325 mg PO BID RF: 0 metoprolol tartrate [Lopressor] 50 mg Tablet 25 mg PO HS RF: 0 zolpidem [Ambien] 10 mg Tablet 10 mg PO HS PRN (Reason: Sleep) RF: 0 albuterol sulfate [ProAir HFA] 90 mcg/actuation Hfa Aerosol Inhaler 2 puff INHALATION QID PRN (Reason: Shortness Of Breath) RF: 0 finasteride [Proscar] 5 mg Tablet 5 mg PO QAM RF: 0 loratadine [Claritin] 10 mg Tablet 10 mg PO QAM RF: 0 zonisamide [Zonegran] 25 mg Capsule 25 mg PO BID RF: 0 duloxetine [Cymbalta] 60 mg Capsule,Delayed Release(Dr/Ec) 60 mg PO HS RF: 0 Advair HFA 45-21 mcg/actuation Hfa Aerosol Inhaler 2 puff INHALATION BID RF: 0 Eliquis 5 mg Tablet 5 mg PO BID RF: 0 atorvastatin [Lipitor] 40 mg Tablet 40 mg PO DAILY RF: 0 Discontinued cyclobenzaprine 10 mg Tablet 10 mg PO HS PRN (Reason: Muscle Spasm) RF: 0 Lantus U-100 Insulin 100 unit/mL Solution 40 unit SUBCUT BID RF: 0 hydrocodone-acetaminophen [Vicodin HP] 10-300 mg Tablet 1 tab PO TID PRN (Reason: Pain) RF: 0 enoxaparin [Lovenox] 80 mg/0.8 mL Syringe 80 mg SUBCUT Q12H RF: 0 Discharge Orders: Discharge Order (Routine); Ordered 12/26/19 Ordered By: Ludwin Willingham Admission Data Admit Date/Time: 12/23/19 12:50 Attending Provider: Ignacio Camacho Admit Provider: Ignacio Camacho Primary Care Provider: Devin Calderon Other Providers: [facility] Other Interventions: Discharge Summary Assessment (RN) Last Done: 12/26/19 17:25 DC Date/Time DO NOT enter until pt leaves facility: 12/26/19 17:45
== END 2019-12-26 17:45 | DRG 470 ==
LOC: ASU 07:54 → 3E 12:50